=== PATIENT | male | born 1955 | race Caucasian/White ===

== ENCOUNTER 2016-08-28 19:11 | Emergency (ER) | payer OTHER, MEDICARE ==
[2016-08-28] MEDS ORDERED: ASPIRIN 81 MG TABLET, CHEWABLE PO ONE (19:28)
--- NOTE | 2016-08-28 19:30 | ER Document Report ---
ED Medical Screen (RME) - General Chief Complaint: Edema Stated Complaint: POSSIBLE SWELLING Time seen by provider: 19:25 Mode of Arrival: Wheelchair Information source: Patient Notes: 60-year-old male with a history of COPD woke up this morning with neck and facial swelling. It got worse after he took his 3:00 steroid dose. Oxygen 3 L/ m nasal cannula at home. Intermittent dizziness that started yesterday. Also right-sided chest pain that has been intermittent today lasting 45 minutes each episode. No history of CHF. Pulse ox is 91% is good for him when he wakes up in the morning it can be as low as 80. TRAVEL OUTSIDE OF THE [place] IN LAST 30 DAYS: No - Related Data Allergies/Adverse Reactions: diltiazem Adverse Reaction (Intermediate, Verified 08/28/16 19:24) cough Past Medical History - Past Medical History Cardiac Medical History: Reports: Hx Congestive Heart Failure - Diastolic Pulmonary Medical History: Reports: Hx Asthma, Hx Bronchitis, Hx COPD, Hx Pneumonia Renal/ Medical History: Reports: Hx Benign Prostatic Hyperplasia - Has been on tamsulosin BID, but recently decreased dose b/c BP low Psychiatric Medical History: Reports: Hx Depression - No suicidal or homicidal ideation. Traumatic Medical History: Reports: Hx Fractures - vetebra Past Surgical History: Reports: Hx Adenoidectomy, Hx Appendectomy, Hx Orthopedic Surgery - back x3, Hx Rectal Surgery - hemorriodectomy, Hx Tonsillectomy - Immunizations Hx Diphtheria, Pertussis, Tetanus Vaccination: Yes Physical Exam - Vital signs Vitals: Temp Pulse Resp BP Pulse Ox 98.1 F 116 H 16 139/80 H 91 L 08/28/16 19:20 08/28/16 19:20 08/28/16 19:20 08/28/16 19:20 08/28/16 19:20 Course - Vital Signs Vital signs: Temp Pulse Resp BP Pulse Ox 98.1 F 116 H 16 139/80 H 91 L 08/28/16 19:20 08/28/16 19:20 08/28/16 19:20 08/28/16 19:20 08/28/16 19:20
[2016-08-28 21:31] LABS: HEMOGLOBIN 10.7 g/dL (13.5-17.0); HGB HCT DIFFERENCE 0.1; MEAN CORPUSCULAR HEMOGLOBIN 27.9 pg (27.0-33.4); MEAN CORPUSCULAR HGB CONC 33.5 g/dL (32.0-36.0); MEAN CORPUSCULAR VOLUME 84 fl (80-97); RED BLOOD COUNT 3.84 10^6/uL (4.35-5.55); RED CELL DISTRIBUTION WIDTH 21.7 % (11.5-14.0); WHITE BLOOD COUNT 10.5 10^3/uL (4.0-10.5)
[2016-08-28 21:42] LABS: ALANINE AMINOTRANSFERASE 35 U/L (21-72); ALBUMIN 3.7 g/dL (3.5-5.0); ALKALINE PHOSPHATASE 55 U/L (38-126); ANION GAP 10 (5-19); ASPARTATE AMINO TRANSFERASE 36 U/L (17-59); BLOOD UREA NITROGEN 17 mg/dL (7-20); CALCIUM 8.7 mg/dL (8.4-10.2); CARBON DIOXIDE 30 mmol/L (22-30); CHLORIDE 96 mmol/L (98-107); CREATINE KINASE 35 U/L (55-170); GLUCOSE 108 mg/dL (75-110); POTASSIUM 4.1 mmol/L (3.6-5.0); SODIUM 135.9 mmol/L (137-145); TOTAL PROTEIN 6.3 g/dL (6.3-8.2)
--- NOTE | 2016-08-28 21:48 | EKG REPORT ---
SEVERITY:- BORDERLINE ECG - SINUS TACHYCARDIA : Confirmed by: Kp Alexis MD 28-Aug-2016 21:47:30
[2016-08-28 21:57] LABS: CREATINE KINASE MB 2.36 ng/mL (<4.55); TROPONIN I < 0.012 ng/mL
[2016-08-28 22:00] LABS: BAND NEUTROPHILS % (MANUAL) 1 % (3-5); BASOPHILS % (MANUAL) 0 % (0-2); EOSINOPHILS % (MANUAL) 0 % (0-6); LYMPHOCYTES % (MANUAL) 14 % (13-45); TOTAL CELLS COUNTED 100
[2016-08-28 22:04] LABS: ANISOCYTOSIS 3+; OVALOCYTES 2+; POIKILOCYTOSIS 2+; POLYCHROMASIA 1+; SCHISTOCYTES SLIGHT; SMUDGE CELLS PRESENT; TOXIC GRANULATION 2+; TOXIC VACUOLATION PRESENT
--- NOTE | 2016-08-28 22:51 | ER Document Report ---
ED General - General Chief Complaint: Edema Stated Complaint: POSSIBLE SWELLING Mode of Arrival: Wheelchair Notes: Patient is a 60-year-old male with past medical history of COPD with chronic 3 L oxygen dependence, currently on steroids and has been chronically for the past 3 weeks who presents with intermittent facial swelling. States that he first noticed this morning after waking up. The swelling did resolve throughout the day but then again recurred after he took his prednisone. States approximately 30 minutes after the prednisone the swelling started. It then slowly dissipated over the course of 2 hours. He has no prior history of similar symptoms in the past and is tolerating prednisone without difficulty in the past. Denies any associated shortness of breath, nausea, vomiting, chest pain, or hives. He did not contact his primary care physician regarding today' s concerns. He is not noticing any improvement or worsening symptoms. He denies any symptoms at the time of my evaluation and is lying in the bed playing on his ipad. TRAVEL OUTSIDE OF THE [place] IN LAST 30 DAYS: No - Related Data Allergies/Adverse Reactions: diltiazem Adverse Reaction (Intermediate, Verified 08/28/16 19:24) cough Past Medical History - General Information source: Patient - Social History Smoking Status: Former Smoker Chew tobacco use (# tins/day): No Frequency of alcohol use: Rare Drug Abuse: None Lives with: Spouse/Significant other Family History: CAD Patient has suicidal ideation: No Patient has homicidal ideation: No - Past Medical History Cardiac Medical History: Reports: Hx Congestive Heart Failure - Diastolic Pulmonary Medical History: Reports: Hx Asthma, Hx Bronchitis, Hx COPD, Hx Pneumonia Renal/ Medical History: Reports: Hx Benign Prostatic Hyperplasia - Has been on tamsulosin BID, but recently decreased dose b/c BP low. Denies: Hx Peritoneal Dialysis Psychiatric Medical History: Reports: Hx Depression - No suicidal or homicidal ideation. Traumatic Medical History: Reports: Hx Fractures - vetebra Past Surgical History: Reports: Hx Adenoidectomy, Hx Appendectomy, Hx Orthopedic Surgery - back x3, Hx Rectal Surgery - hemorriodectomy, Hx Tonsillectomy - Immunizations Hx Diphtheria, Pertussis, Tetanus Vaccination: Yes Hx Pneumococcal Vaccination: 05/08/10 Review of Systems - Review of Systems Notes: Constitutional: Negative for fever. HENT: Negative for sore throat. Eyes: Negative for visual changes. Cardiovascular: Negative for chest pain. Respiratory: Negative for shortness of breath. Gastrointestinal: Negative for abdominal pain, vomiting or diarrhea. Genitourinary: Negative for dysuria. Musculoskeletal: Negative for back pain. Skin: Positive for intermittent facial swelling Neurological: Negative for headaches, weakness or numbness. 10 point ROS negative except as marked above and in HPI. Physical Exam - Vital signs Vitals: Temp Pulse Resp BP Pulse Ox 98.1 F 116 H 16 139/80 H 91 L 08/28/16 19:20 08/28/16 19:20 08/28/16 19:20 08/28/16 19:20 08/28/16 19:20 Interpretation: Tachycardic, Hypoxic Notes: PHYSICAL EXAMINATION: GENERAL: Chronically ill in appearance but in no acute distress. HEAD: Atraumatic, normocephalic. EYES: Pupils equal round and reactive to light, extraocular movements intact, sclera anicteric, conjunctiva are normal. ENT: nares patent, oropharynx clear without exudates. Moist mucous membranes. NECK: Normal range of motion, supple without lymphadenopathy LUNGS: Breath sounds clear to auscultation bilaterally and equal. No wheezes rales or rhonchi. HEART: Regular rate and rhythm without murmurs ABDOMEN: Soft, nontender, normoactive bowel sounds. No guarding, no rebound. No masses appreciated. EXTREMITIES: Normal range of motion, no pitting or edema. No cyanosis. NEUROLOGICAL: No focal neurological deficits. Moves all extremities spontaneously and on command. PSYCH: Normal mood, normal affect. SKIN: Warm, Dry, normal turgor, no rashes or lesions noted. Course - Re-evaluation Re-evalutation: 08/28/16 22:51 Patient is a 60-year-old male who presents with concerns of facial swelling after taking prednisone. Of note, the nurse practitioner in triage apparently noted that the patient had complained of chest pain. However, both the patient and his deny this complaint. The swelling occurred over the last 12 hours with both doses of prednisone. Swelling has spontaneously resolved. At the time my evaluation patient is in no distress, vitals within normal limits. He has no facial swelling. No oropharyngeal swelling. No wheezing or stridor. His history is not consistent with an acute allergic reaction given that he only has some mild facial swelling but no hives, wheezing, vomiting, or cardiovascular symptoms. Moreover, he has been taking prednisone for years without a reaction the past. The exact etiology of patient's reported symptoms is unclear although based on his reassuring evaluation at this time both on history, labs and vitals, do not see an indication to obtain further testing or hospitalization. His history is not consistent with an SVC syndrome.At this time will discharge with return precautions and follow-up recommendations. Verbal discharge instructions given a the bedside and opportunity for questions given. Medication warnings reviewed. Patient is in agreement with this plan and has verbalized understanding of return precautions and the need for primary care follow-up in the next 24-72 hours. - Vital Signs Vital signs: Temp Pulse Resp BP Pulse Ox 97.4 F 116 H 13 133/95 H 100 08/28/16 23:01 08/28/16 19:25 08/28/16 23:01 08/28/16 23:01 08/28/16 23:01 - Laboratory Result Diagrams: 08/28/16 21:15 08/28/16 21:15 Laboratory results interpreted by me: 08/28/16 08/28/16 21:15 21:15 RBC 3.84 L Hgb 10.7 L Hct 32.0 L RDW 21.7 H Band Neutrophils % 1 L Monocytes % (Manual) 2 L Metamyelocytes % 2 H Myelocytes % 2 H Abs Neuts (Manual) 8.7 H Sodium 135.9 L Chloride 96 L Creatine Kinase 35 L - Diagnostic Test Radiology reviewed: Image reviewed, Reports reviewed Radiology results interpreted by me: 08/29/16 03:56 Chest x-ray: No acute infiltrate - EKG Interpretation by Me Additional EKG results interpreted by me: 08/29/16 03:57 Sinus tachycardia. Rate 107. No ST elevations or depressions. QTC 411. Discharge - Discharge Clinical Impression: Facial swelling Condition: Good Disposition: HOME, SELF-CARE Additional Instructions: Please return immediately if you began develop shortness of breath, swallowing, throat swelling, or any other symptoms that are concerning to you. Follow-up with your primary doctor as soon as possible Referrals: CARRI RIVERA MD [Primary Care Provider] - Follow up in 3-5 days
[2016-08-28 23:32] VITALS: BP 133/95
== END 2016-08-28 23:31 | disposition home or self-care (01) ==
LOC: ER 19:11
DX: J44.9 Chronic obstructive pulmonary disease, unspecified (principal); J45.909 Unspecified asthma, uncomplicated; I50.9 Heart failure, unspecified; Z99.81 Dependence on supplemental oxygen; Z87.891 Personal history of nicotine dependence
CPT/HCPCS: 36415; 71010; 80053; 82550; 82553; 84484; 85025; 93005; 93010; 99284

== ENCOUNTER 2016-09-16 14:44 | Emergency (ER) | payer OTHER, MEDICARE ==
[2016-09-16] MEDS ORDERED: PREDNISONE 20 MG TABLET PO ONE (14:55)
[2016-09-16] MEDS ORDERED: IPRATROPIUM/ALBUTEROL 0.5-2.5 MG/3 ML AMPUL NEB ONE ×2 (14:55→16:17)
--- NOTE | 2016-09-16 14:55 | ER Document Report ---
ED Medical Screen (RME) - General Stated Complaint: DIFFICULTY BREATHING Notes: palpitations for the past couple of days with difficulty breathing. COPD on 3L continuous chronic back pain and nonambulatory therefore in motorized wheel chair. h/o tachycardia. I have greeted and performed a rapid initial assessment of this patient. A comprehensive ED assessment and evaluation of the patient, analysis of test results and completion of the medical decision making process will be conducted by additional ED providers. TRAVEL OUTSIDE OF THE [place] IN LAST 30 DAYS: No - Related Data Allergies/Adverse Reactions: diltiazem Adverse Reaction (Intermediate, Verified 08/28/16 19:24) cough Past Medical History - Past Medical History Cardiac Medical History: Reports: Hx Congestive Heart Failure - Diastolic Pulmonary Medical History: Reports: Hx Asthma, Hx Bronchitis, Hx COPD, Hx Pneumonia Renal/ Medical History: Reports: Hx Benign Prostatic Hyperplasia - Has been on tamsulosin BID, but recently decreased dose b/c BP low. Denies: Hx Peritoneal Dialysis Psychiatric Medical History: Reports: Hx Depression - No suicidal or homicidal ideation. Traumatic Medical History: Reports: Hx Fractures - vetebra Past Surgical History: Reports: Hx Adenoidectomy, Hx Appendectomy, Hx Orthopedic Surgery - back x3, Hx Rectal Surgery - hemorriodectomy, Hx Tonsillectomy - Immunizations Hx Diphtheria, Pertussis, Tetanus Vaccination: Yes Physical Exam - Vital signs Vitals: Temp Pulse Resp BP Pulse Ox 98.3 F 116 H 12 132/102 H 92 09/16/16 14:48 09/16/16 14:48 09/16/16 14:48 09/16/16 14:48 09/16/16 14:48 Course - Vital Signs Vital signs: Temp Pulse Resp BP Pulse Ox 98.3 F 116 H 12 132/102 H 92 09/16/16 14:48 09/16/16 14:48 09/16/16 14:48 09/16/16 14:48 09/16/16 14:48
[2016-09-16] MEDS: ALBUTEROL SULFATE 0.083% NEB 2.5 MG/3 ML AMPUL NEB SCH (15:15)
[2016-09-16 15:16] LABS: HEMATOCRIT 31.7 % (37.9-51.0); HEMOGLOBIN 10.6 g/dL (13.5-17.0); HGB HCT DIFFERENCE 0.1; MEAN CORPUSCULAR HGB CONC 33.5 g/dL (32.0-36.0); MEAN CORPUSCULAR VOLUME 84 fl (80-97); RED BLOOD COUNT 3.79 10^6/uL (4.35-5.55); RED CELL DISTRIBUTION WIDTH 21.2 % (11.5-14.0); WHITE BLOOD COUNT 14.5 10^3/uL (4.0-10.5)
[2016-09-16 15:34] LABS: ALANINE AMINOTRANSFERASE 56 U/L (21-72); ALKALINE PHOSPHATASE 68 U/L (38-126); ANION GAP 11 (5-19); ASPARTATE AMINO TRANSFERASE 17 U/L (17-59); BILIRUBIN,TOTAL 0.9 mg/dL (0.2-1.3); BLOOD UREA NITROGEN 15 mg/dL (7-20); CALCIUM 9.2 mg/dL (8.4-10.2); CARBON DIOXIDE 29 mmol/L (22-30); CHLORIDE 93 mmol/L (98-107); CREATININE RESULT 0.78 mg/dL (0.52-1.25); GLUCOSE 109 mg/dL (75-110); POTASSIUM 4.2 mmol/L (3.6-5.0); SODIUM 132.9 mmol/L (137-145); TOTAL PROTEIN 6.4 g/dL (6.3-8.2)
[2016-09-16 15:38] LABS: BASOPHILS % (MANUAL) 0 % (0-2); EOSINOPHILS % (MANUAL) 1 % (0-6); LYMPHOCYTES % (MANUAL) 5 % (13-45); TOTAL CELLS COUNTED 100
[2016-09-16 15:39] LABS: ANISOCYTOSIS 2+; OVALOCYTES SLIGHT; TEAR DROP CELLS SLIGHT; TOXIC GRANULATION SLIGHT
--- NOTE | 2016-09-16 15:52 | ER Document Report ---
ED Respiratory Problem - General Time seen by provider: 15:40 Mode of Arrival: Ambulatory Information source: Patient TRAVEL OUTSIDE OF THE [place] IN LAST 30 DAYS: No - HPI Patient complains to provider of: Chest pain, CHF, COPD, Cough, Short of breath Onset: Other - see HPI note Context: Hx CHF, Hx COPD Associated symptoms: Chest pain/discomfort, Cough <STEVE NOONAN - Last Filed: 09/16/16 20:24> <LEOLA ALONZO - Last Filed: 09/16/16 22:38> - General Chief Complaint: Breathing Difficulty Stated Complaint: DIFFICULTY BREATHING Notes: Patient is a 60-year-old male presenting to the emergency department with complaints of difficulty breathing. Patient states that he took 2 nebulizer treatments at home and was given 60 mg of prednisone. Patient is on 3 L of oxygen at home. Patient has some chest pain which is not new. Patient states that he feels worse and more tired and previous episodes of this. Patient states that he used his Trilogy nebulizer machine yesterday evening and he had a dehumidifier on last night. Patient states that this morning his difficulty breathing was extremely worse. Patient denies any fever. Patient is seen in the emergency department for difficulty breathing in the recent past. (STEVE NOONAN) - Related Data Allergies/Adverse Reactions: diltiazem Adverse Reaction (Intermediate, Verified 08/28/16 19:24) cough Past Medical History - General Information source: Patient - Social History Smoking Status: Former Smoker Chew tobacco use (# tins/day): No Frequency of alcohol use: None Drug Abuse: None Family History: CAD Patient has suicidal ideation: No Patient has homicidal ideation: No - Past Medical History Cardiac Medical History: Reports: Hx Congestive Heart Failure - Diastolic Pulmonary Medical History: Reports: Hx Asthma, Hx Bronchitis, Hx COPD, Hx Pneumonia Renal/ Medical History: Reports: Hx Benign Prostatic Hyperplasia - Has been on tamsulosin BID, but recently decreased dose b/c BP low Psychiatric Medical History: Reports: Hx Depression - No suicidal or homicidal ideation. Traumatic Medical History: Reports: Hx Fractures - vetebra Past Surgical History: Reports: Hx Adenoidectomy, Hx Appendectomy, Hx Orthopedic Surgery - back x3, Hx Rectal Surgery - hemorriodectomy, Hx Tonsillectomy - Immunizations Hx Diphtheria, Pertussis, Tetanus Vaccination: Yes Hx Pneumococcal Vaccination: 05/08/10 <SHAISTASTEVE - Last Filed: 09/16/16 20:24> Review of Systems - Review of Systems Constitutional: No symptoms reported EENT: No symptoms reported Cardiovascular: See HPI, Chest pain Respiratory: See HPI, Cough, Short of breath Gastrointestinal: No symptoms reported Genitourinary: No symptoms reported Male Genitourinary: No symptoms reported Musculoskeletal: No symptoms reported Skin: No symptoms reported Hematologic/Lymphatic: No symptoms reported Neurological/Psychological: No symptoms reported -: Yes All other systems reviewed and negative <JENAGREGORIOSTEVE - Last Filed: 09/16/16 20:24> Physical Exam - Vital signs Interpretation: Tachycardic - General General appearance: Alert, Anxious - HEENT Head: Normocephalic, Atraumatic Eyes: Normal Pupils: PERRL Mucous membranes: Moist - Respiratory Respiratory status: No respiratory distress Chest status: Nontender Breath sounds: Wheezing - Slight expiratory wheeze bilaterally Chest palpation: Normal - Cardiovascular Rhythm: Regular Heart sounds: Normal auscultation Murmur: No - Abdominal Inspection: Normal Distension: No distension Bowel sounds: Normal Tenderness: Nontender Organomegaly: No organomegaly - Back Back: Normal, Nontender - Extremities General upper extremity: Normal inspection, Normal ROM, Normal strength General lower extremity: Normal inspection, Normal ROM, Normal strength - Neurological Neuro grossly intact: Yes Cognition: Normal Orientation: AAOx4 Dixon Coma Scale Eye Opening: Spontaneous Eli Coma Scale Verbal: Oriented Eli Coma Scale Motor: Obeys Commands Dixon Coma Scale Total: 15 Speech: Normal - Psychological Associated symptoms: Normal affect, Anxious - Skin Skin Temperature: Warm Skin Moisture: Dry <STEVE NOONAN - Last Filed: 09/16/16 20:24> Course - Laboratory Result Diagrams: 09/16/16 15:00 09/16/16 15:00 <STEVE NOONAN - Last Filed: 09/16/16 20:24> - Laboratory Result Diagrams: 09/16/16 15:00 09/16/16 15:00 - Diagnostic Test Radiology reviewed: Image reviewed, Reports reviewed <LEOLA ALONZO - Last Filed: 09/16/16 22:38> - Re-evaluation Re-evalutation: 09/16/16 Patient is a 60-year-old male the history of COPD. No evidence for pneumonia clinically today. Patient is afebrile. I reviewed his chest x-ray and it does not appear different from before. The patient actually appears better from the last time I saw him. He is not in any acute distress. Feels much better after anxiety medication and fluids. Heart rate within normal limits. Blood pressure within normal limits. Return immediately if any worsening or concerning symptoms. Stable for discharge home. Patient and with prefer that the patient go home today. Understand and agree with plan. Grateful for care. (LEOLA ALONZO) - Vital Signs Vital signs: Temp Pulse Resp BP Pulse Ox 98.3 F 105 H 15 134/93 H 94 09/16/16 14:48 09/16/16 15:15 09/16/16 18:31 09/16/16 18:31 09/16/16 18:31 (STEVE NOONAN) (LEOLA ALONZO) - Laboratory Laboratory results interpreted by me: 09/16/16 09/16/16 09/16/16 15:00 15:00 15:00 WBC 14.5 H RBC 3.79 L Hgb 10.6 L Hct 31.7 L RDW 21.2 H Seg Neuts % (Manual) 91 H Lymphocytes % (Manual) 5 L Abs Neuts (Manual) 13.2 H Sodium 132.9 L Chloride 93 L Creatine Kinase 27 L (STEVE NOONAN) (LEOLA ALONZO) Discharge <STEVE NOONAN - Last Filed: 09/16/16 20:24> <LEOLA ALONZO - Last Filed: 09/16/16 22:38> - Discharge Clinical Impression: Anxiety, COPD exacerbation Condition: Stable Disposition: HOME, SELF-CARE Instructions: Chronic Obstructive Lung Disease ([facility]), Anxiety ([facility]) Referrals: LINDSEY RIVERA MD [Primary Care Provider] - Follow up as needed Scribe Attestation: 09/16/16 22:38 I personally performed the services described in the documentation, reviewed and edited the documentation which was dictated to the scribe in my presence, and it accurately records my words and actions. (LEOLA ALONZO) Scribe Documentation - Scribe Written by Scribe:: Steve Noonan 09/16/16 19:10 acting as scribe for DrJenn:: Martha <STEVE NOONAN - Last Filed: 09/16/16 20:24>
[2016-09-16 16:48] LABS: CREATINE KINASE MB 1.88 ng/mL (<4.55)
[2016-09-16] MEDS ORDERED: LORAZEPAM 0.5 MG TABLET PO ONE (16:48)
[2016-09-16] MEDS ORDERED: NORMAL SALINE 1000 ML 1,000 ML IV ONE (16:48)
[2016-09-16 16:49] LABS: TROPONIN I < 0.012 ng/mL
--- NOTE | 2016-09-16 17:15 | EKG REPORT ---
SEVERITY:- OTHERWISE NORMAL ECG - SINUS TACHYCARDIA. : Confirmed by: Kp Alexis MD 16-Sep-2016 17:14:08
[2016-09-16 18:47] VITALS: BP 134/93
== END 2016-09-16 18:49 | disposition home or self-care (01) ==
LOC: ER 14:44
DX: J44.1 Chronic obstructive pulmonary disease with (acute) exacerbation (principal); F41.9 Anxiety disorder, unspecified; J45.909 Unspecified asthma, uncomplicated; I50.30 Unspecified diastolic (congestive) heart failure; Z87.891 Personal history of nicotine dependence; Z99.81 Dependence on supplemental oxygen
CPT/HCPCS: 93005; 94640 ×2; 99285; 36415; 82553; 82550; 85025; 80053; 84484; 71010; 93010; J7512; J7620

== ENCOUNTER 2016-09-19 12:01 | Emergency (ER) | payer OTHER, MEDICARE ==
[2016-09-19 13:07] LABS: HEMATOCRIT 30.3 % (37.9-51.0); HEMOGLOBIN 10.2 g/dL (13.5-17.0); HGB HCT DIFFERENCE 0.3; MEAN CORPUSCULAR HEMOGLOBIN 28.2 pg (27.0-33.4); MEAN CORPUSCULAR HGB CONC 33.7 g/dL (32.0-36.0); MEAN CORPUSCULAR VOLUME 84 fl (80-97); RED BLOOD COUNT 3.62 10^6/uL (4.35-5.55); RED CELL DISTRIBUTION WIDTH 20.9 % (11.5-14.0); WHITE BLOOD COUNT 13.7 10^3/uL (4.0-10.5)
[2016-09-19 13:24] LABS: ALANINE AMINOTRANSFERASE 52 U/L (21-72); ALBUMIN 3.8 g/dL (3.5-5.0); ALKALINE PHOSPHATASE 65 U/L (38-126); ANION GAP 10 (5-19); ASPARTATE AMINO TRANSFERASE 19 U/L (17-59); BILIRUBIN,TOTAL 0.8 mg/dL (0.2-1.3); BLOOD UREA NITROGEN 11 mg/dL (7-20); CALCIUM 9.1 mg/dL (8.4-10.2); CARBON DIOXIDE 28 mmol/L (22-30); CHLORIDE 94 mmol/L (98-107); CREATINE KINASE 33 U/L (55-170); CREATININE RESULT 0.75 mg/dL (0.52-1.25); GLUCOSE 92 mg/dL (75-110); POTASSIUM 4.1 mmol/L (3.6-5.0)
[2016-09-19 13:32] LABS: BAND NEUTROPHILS % (MANUAL) 7 % (3-5); BASOPHILS % (MANUAL) 0 % (0-2); EOSINOPHILS % (MANUAL) 0 % (0-6); LYMPHOCYTES % (MANUAL) 9 % (13-45); TOTAL CELLS COUNTED 100
[2016-09-19 13:33] LABS: HYPOCHROMASIA SLIGHT; OVALOCYTES 1+; POIKILOCYTOSIS 1+; POLYCHROMASIA SLIGHT; TOXIC GRANULATION SLIGHT
[2016-09-19 13:36] LABS: CREATINE KINASE MB 2.16 ng/mL (<4.55)
[2016-09-19 13:37] LABS: TROPONIN I < 0.012 ng/mL
[2016-09-19] MEDS ORDERED: IPRATROPIUM/ALBUTEROL 0.5-2.5 MG/3 ML AMPUL NEB ONE (14:27)
--- NOTE | 2016-09-19 14:55 | ER Document Report ---
ED Respiratory Problem - General Chief Complaint: Shortness Of Breath Stated Complaint: CHEST PAIN,SHORTNESS OF BREATH Mode of Arrival: Wheelchair Information source: Patient Notes: This is a 60-year-old male who is oxygen dependent for his COPD who returns to the ER today for continued shortness of breath and chest discomfort. He has had multiple ER visits for this complaint. He was seen for same symptoms on September 16. He has been stable on his 3 L of home O2. He denies any fevers. He has been compliant with his steroids and his nebulizers. He states that today he coughed up some brownish sputum which worried him and prompted him to return to the ER. He does not currently have chest pain. TRAVEL OUTSIDE OF THE [place] IN LAST 30 DAYS: No - Related Data Allergies/Adverse Reactions: diltiazem Adverse Reaction (Intermediate, Verified 09/19/16 12:05) cough Past Medical History - General Information source: Patient - Social History Smoking Status: Former Smoker Family History: CAD - Past Medical History Cardiac Medical History: Reports: Hx Congestive Heart Failure - Diastolic Pulmonary Medical History: Reports: Hx Asthma, Hx Bronchitis, Hx COPD, Hx Pneumonia Renal/ Medical History: Reports: Hx Benign Prostatic Hyperplasia - Has been on tamsulosin BID, but recently decreased dose b/c BP low. Denies: Hx Peritoneal Dialysis Psychiatric Medical History: Reports: Hx Depression - No suicidal or homicidal ideation. Traumatic Medical History: Reports: Hx Fractures - vetebra Past Surgical History: Reports: Hx Adenoidectomy, Hx Appendectomy, Hx Orthopedic Surgery - back x3, Hx Rectal Surgery - hemorriodectomy, Hx Tonsillectomy - Immunizations Hx Diphtheria, Pertussis, Tetanus Vaccination: Yes Hx Pneumococcal Vaccination: 05/08/10 Review of Systems - Review of Systems Notes: REVIEW OF SYSTEMS: CONSTITUTIONAL : Denies fever, chills, or sweats. Denies recent illness. EENT: Denies eye, ear, throat, or mouth pain or symptoms. Denies nasal or sinus congestion. CARDIOVASCULAR: No palpitations. Constant chest discomfort as per HPI. RESPIRATORY: as per HPI GASTROINTESTINAL: Denies abdominal pain. Denies nausea, vomiting, or diarrhea. Denies constipation. Last BM: GENITOURINARY: Denies difficulty urinating, painful urination, burning, frequency, or blood in urine. MUSCULOSKELETAL: Denies neck or back pain or joint pain or swelling. SKIN: Denies rash or skin lesions. HEMATOLOGIC : Denies easy bruising or bleeding. LYMPHATIC: Denies swollen, enlarged glands. NEUROLOGICAL: Denies altered mental status or loss of consciousness. Denies headache. PSYCHIATRIC: Denies anxiety or stress or depression. ALL OTHER SYSTEMS REVIEWED AND NEGATIVE. Physical Exam - Vital signs Vitals: Temp Pulse Resp BP Pulse Ox 98.6 F 119 H 22 H 137/84 H 89 L 09/19/16 12:19 09/19/16 12:19 09/19/16 12:19 09/19/16 12:19 09/19/16 12:19 - Notes Notes: Patient noted to be resting comfortably in his bed and working on his laptop as I enter the room. PHYSICAL EXAMINATION: GENERAL: Well-appearing, well-nourished and in no acute distress. Conversant in full sentences. HEAD: Atraumatic, normocephalic. EYES: Pupils equal round and reactive to light, extraocular movements intact, sclera anicteric, conjunctiva are normal. ENT: nares patent, oropharynx clear without exudates. Moist mucous membranes. NECK: Normal range of motion, supple without lymphadenopathy LUNGS: Breath sounds clear to auscultation bilaterally and equal. Occasional faint scattered expiratory wheeze bilaterally. HEART: Tachycardic rate and regular rhythm without murmurs ABDOMEN: Soft, nontender, normoactive bowel sounds. No guarding, no rebound. No masses appreciated. EXTREMITIES: Normal range of motion, no pitting or edema. No cyanosis. NEUROLOGICAL: Cranial nerves grossly intact. Normal speech. No gross focal motor or sensory deficits PSYCH: Normal mood, somewhat anxious/nervous affect SKIN: Warm, Dry, normal turgor, no rashes or lesions noted. Course - Re-evaluation Re-evalutation: 09/19/16 16:16 Patient was reevaluated. He is sitting up in bed speaking in full sentences and states he he feels much better after the breathing treatment and Ativan. We discussed his chest x-ray and that there was no evidence of pneumonia at this time, however he is coughing up thick sputum which is new for him. Also although his total white blood cell count has decreased from last visit he does have a mild bandemia with 7% bands. Because of these changes we will treat with an antibiotic at this time, and he is already taking prednisone. Patient states that he would like to go home he is feeling better and he does not wish to stay in the hospital and I think that this is appropriate as he has outpatient follow-up already scheduled and he and his family are reliable to return for any worsening symptoms or concerns. We discussed strict return precautions and all questions were answered. 09/19/16 16:23 - Vital Signs Vital signs: Temp Pulse Resp BP Pulse Ox 98.6 F 119 H 18 129/117 H 95 09/19/16 12:19 09/19/16 12:19 09/19/16 13:01 09/19/16 13:01 09/19/16 13:01 - Laboratory Result Diagrams: 09/19/16 12:51 09/19/16 12:51 Laboratory results interpreted by me: 09/19/16 09/19/16 12:51 12:51 WBC 13.7 H RBC 3.62 L Hgb 10.2 L Hct 30.3 L RDW 20.9 H Band Neutrophils % 7 H Lymphocytes % (Manual) 9 L Abs Neuts (Manual) 11.4 H Sodium 132.0 L Chloride 94 L Creatine Kinase 33 L Total Protein 6.0 L - Diagnostic Test Radiology reviewed: Image reviewed, Reports reviewed - Chest x-ray shows COPD with no obvious infiltrate - EKG Interpretation by Me Additional EKG results interpreted by me: 09/19/16 15:04 EKG done at 1210 demonstrates sinus tachycardia with a rate of [address] segment elevations or depressions. There is no significant change from prior EKG Discharge - Discharge Clinical Impression: COPD (chronic obstructive pulmonary disease) with acute bronchitis, Anxiety Condition: Stable Disposition: HOME, SELF-CARE Additional Instructions: INHALED BRONCHODILATORS: You have received treatment(s) of and/or prescription for an inhaled bronchodilator -- a medication which stimulates the airways in the lung to dilate. This improves the flow of air in asthma, bronchitis, and emphysema. These medicines have some similarity to adrenaline, and can cause similar side effects: shakiness, racing heart, and a sense of nervousness. These side effects decrease with time. Contact your doctor if these side effects are severe. Do not over-use the medicine. Too-frequent use of the inhaler may make it ineffective. Call your doctor if the inhaler is not controlling your symptoms at the prescribed doses. SMOKING: If you smoke, you should stop smoking. The tar and chemicals in cigarette smoke are harmful. Smoking has been shown to cause: emphysema chronic bronchitis lung cancer mouth and throat cancer stomach and pancreas cancer premature aging defects In addition, smoking increases ear and lung infections in children of smokers. ANTIBIOTIC THERAPY: You have been given an antibiotic prescription. It's important that you take all the medication, unless instructed otherwise by your physician. Failure to complete the entire course can result in relapse of your condition. Common side effects of antibiotics include nausea, intestinal cramping, or diarrhea. Women may develop vaginal yeast infections, and babies can get yeast (thrush) in the mouth following the use of antibiotics. Contact your physician if you develop significant side effects from this medication. Allergy to this antibiotic can result in hives, wheezing, faintness, or itching. If symptoms of allergy occur, stop the medication and call your doctor. USE OF ACETAMINOPHEN: Acetaminophen may be taken for pain relief or fever control. It's much safer than aspirin, offering a wider range of "safe" dosages. It is safe during . Some brand names are Tylenol, Panadol, Datril, Anacin 3, Tempra, and Liquiprin. Acetaminophen can be repeated every four hours. The following are maximum recommended dosages: BRONCHITIS: You have acute bronchitis. This disease is an infection or inflammation of the air passageways in your lungs. Symptoms usually include cough, low grade fever, shortness of breath, and wheezing. The cough usually persists for a couple of weeks. Most cases of bronchitis get better without antibiotics. We prescribe antibiotics when we believe bacteria are damaging your airways, or if there's high risk the bronchitis will worsen into pneumonia. Increase your fluid intake. A cool mist humidifier may make your lungs more comfortable. An expectorant (cough medicine that loosens phlegm) can help. If you smoke, STOP!!! Recovery from bronchitis can be somewhat slow, but you should see improvement within a day or two. Repeated episodes of bronchitis may result in lung damage -- for example, chronic bronchitis, recurrent pneumonias, or emphysema. Call the doctor if you develop increasing fever, shortness of breath, chest pain, bloody sputum, or otherwise worsen. If you have not improved at all after several days, contact the physician. ANTIBIOTIC THERAPY: You have been given an antibiotic prescription. It's important that you take all the medication, unless instructed otherwise by your physician. Failure to complete the entire course can result in relapse of your condition. Common side effects of antibiotics include nausea, intestinal cramping, or diarrhea. Women may develop vaginal yeast infections, and babies can get yeast (thrush) in the mouth following the use of antibiotics. Contact your physician if you develop significant side effects from this medication. Allergy to this antibiotic can result in hives, wheezing, faintness, or itching. If symptoms of allergy occur, stop the medication and call your doctor. Chronic Obstructive Lung Disease You have chronic obstructive lung disease (COPD). The symptoms come from emphysema (damage to small airways, with trapping of air in large sacks in the lung) and chronic bronchitis (repeated infection and damage to larger airways). The cause is almost always cigarette smoking, although dust exposure, asthma, and infections contribute. You should avoid fumes, dust, and smoke (especially tobacco smoke). Your condition will flare from time to time. There is no cure, but the symptoms can be treated. Bronchodilators (asthma medicine) are often helpful. Antibiotics help when infection is present. When shortness of breath is severe, we may prescribe cortisone medication. If medicine doesn't help enough, we can arrange for you to have an oxygen tank at home. Notify your doctor at once if sputum becomes thick, foul, or bloody, if you develop a fever or chest pain, or if your shortness of breath worsens. USE OF ACETAMINOPHEN (Tylenol): Acetaminophen may be taken for pain relief or fever control. It's much safer than aspirin, offering a wider range of "safe" dosages. It is safe during . Some brand names are Tylenol, Panadol, Datril, Anacin 3, Tempra, and Liquiprin. Acetaminophen can be repeated every four hours. The following are maximum recommended dosages: >89 pounds or adults 650 mg to 900 mg Acetaminophen can be repeated every four hours. Maximum dose not to exceed 4000 mg a day. SMOKING: If you smoke, you should stop smoking. The tar and chemicals in cigarette smoke are harmful. Smoking has been shown to cause: emphysema chronic bronchitis lung cancer mouth and throat cancer stomach and pancreas cancer premature aging defects In addition, smoking increases ear and lung infections in children of smokers. FOLLOW-UP CARE: If you have been referred to a physician for follow-up care, call the physician s office for an appointment as you were instructed or within the next two days. If you experience worsening or a significant change in your symptoms, notify the physician immediately or return to the Emergency Department at any time for re-evaluation. Levofloxacain You have been given an antibacterial agent, levofloxacin (Levaquin). This medicine is not related to the penicillins, sulfas, cephalosporins, or tetracyclines. It is often given to patients who are allergic to these drugs. It has been chosen for you either because other drugs are not appropriate, or because of the nature of your problem. Levaquin should not be taken with antacids, as these can decrease its effectiveness. It can be taken without regard to meals. LEVAQUIN SHOULD NOT BE TAKEN BY CHILDREN, NURSING WOMEN, OR WOMEN. Although Levaquin is usually well-tolerated, common side effects can include nausea and diarrhea. Contact your doctor if you experience any unusual symptoms while on this medication, such as joint pain or swelling, shortness of breath, wheezing, faintness, or hives. Prescriptions: Levofloxacin [Levaquin 750 mg Tablet] 750 mg PO DAILY #10 tablet
[2016-09-19] MEDS ORDERED: LORAZEPAM INJ 2 MG/1 ML VIAL IV ONE (15:02)
[2016-09-19] MEDS ORDERED: NORMAL SALINE 1000 ML 1,000 ML IV ONE (15:02)
[2016-09-19 16:34] VITALS: BP 116/81
--- NOTE | 2016-09-19 17:41 | EKG REPORT ---
SEVERITY:- OTHERWISE NORMAL ECG - SINUS TACHYCARDIA : Confirmed by: Kp Alexis MD 19-Sep-2016 17:40:20
== END 2016-09-19 16:33 | disposition home or self-care (01) ==
LOC: ER 12:01
DX: J44.0 Chronic obstructive pulmonary disease with (acute) lower respiratory infection (principal); J20.9 Acute bronchitis, unspecified; F41.9 Anxiety disorder, unspecified; R06.02 Shortness of breath; R07.9 Chest pain, unspecified
CPT/HCPCS: 93005; 94640; 99285; 96361; 96374; 36415; 82553; 82550; 85025; 80053; 84484; 71010; 93010; J2060; J7030; J7620

== ENCOUNTER 2016-09-23 08:37 | Emergency (ER) | payer OTHER, MEDICARE ==
--- NOTE | 2016-09-23 10:28 | ER Document Report ---
ED GI/ - General Chief Complaint: Abdominal Pain Stated Complaint: ABDOMINAL PAIN Notes: The patient is a 60-year-old male, past medical history gastritis, hypertension , presents with epigastric pain and diarrhea for the past 2 days. He was prescribed Levaquin a few days ago for bronchitis. He says his heart rate is usually in the 110s. He denies fevers, nausea, vomiting, chest pain, shortness of breath, back pain or urinary symptoms. TRAVEL OUTSIDE OF THE [place] IN LAST 30 DAYS: No - Related Data Allergies/Adverse Reactions: diltiazem Adverse Reaction (Intermediate, Verified 09/23/16 08:56) cough Past Medical History - General Information source: Patient - Social History Smoking Status: Former Smoker Chew tobacco use (# tins/day): No Frequency of alcohol use: None Drug Abuse: None Family History: CAD Patient has suicidal ideation: No Patient has homicidal ideation: No - Past Medical History Cardiac Medical History: Reports: Hx Congestive Heart Failure - Diastolic Pulmonary Medical History: Reports: Hx Asthma, Hx Bronchitis, Hx COPD, Hx Pneumonia Renal/ Medical History: Reports: Hx Benign Prostatic Hyperplasia - Has been on tamsulosin BID, but recently decreased dose b/c BP low. Denies: Hx Peritoneal Dialysis Psychiatric Medical History: Reports: Hx Depression - No suicidal or homicidal ideation. Traumatic Medical History: Reports: Hx Fractures - vetebra Past Surgical History: Reports: Hx Adenoidectomy, Hx Appendectomy, Hx Orthopedic Surgery - back x3, Hx Rectal Surgery - hemorriodectomy, Hx Tonsillectomy - Immunizations Hx Diphtheria, Pertussis, Tetanus Vaccination: Yes Hx Pneumococcal Vaccination: 05/08/10 Review of Systems - Review of Systems Notes: REVIEW OF SYSTEMS: CONSTITUTIONAL: -fevers, -chills EENT: -eye pain, -difficulty swallowing, -nasal congestion CARDIOVASCULAR: -chest pain, -syncope. RESPIRATORY: -cough, -SOB GASTROINTESTINAL: +abdominal pain, -nausea, -vomiting, +diarrhea GENITOURINARY: -dysuria, -hematuria MUSCULOSKELETAL: -back pain, -neck pain SKIN: -rash or skin lesions. HEMATOLOGIC: -easy bruising or bleeding. LYMPHATIC: -swollen, enlarged glands. NEUROLOGICAL: -altered mental status or loss of consciousness, -headache, - neurologic symptoms PSYCHIATRIC: -anxiety, -depression. ALL OTHER SYSTEMS REVIEWED AND NEGATIVE. Physical Exam - Vital signs Vitals: Temp Pulse Resp BP Pulse Ox 97.8 F 114 H 20 123/81 93 09/23/16 08:48 09/23/16 08:48 09/23/16 08:48 09/23/16 08:48 09/23/16 08:48 - Notes Notes: PHYSICAL EXAMINATION: GENERAL: Well-appearing, well-nourished and in no acute distress. HEAD: Atraumatic, normocephalic. EYES: Pupils equal round and reactive to light, extraocular movements intact, sclera anicteric, conjunctiva are normal. ENT: nares patent, oropharynx clear without exudates. Moist mucous membranes. NECK: Normal range of motion, supple without lymphadenopathy LUNGS: Breath sounds clear to auscultation bilaterally and equal. No wheezes rales or rhonchi. HEART: Tachycardic, Regular rhythm without murmurs ABDOMEN: Soft, mildly tender epigastric area, normoactive bowel sounds. No guarding, no rebound. No masses appreciated. EXTREMITIES: Normal range of motion, no pitting or edema. No cyanosis. NEUROLOGICAL: Cranial nerves grossly intact. Normal speech, normal gait. Normal sensory, motor, and reflex exams. PSYCH: Normal mood, normal affect. SKIN: Warm, Dry, normal turgor, no rashes or lesions noted. Course - Re-evaluation Re-evalutation: Patient with mild epigastric tenderness and diarrhea. Labs are all unremarkable. Looking through old records, patient is consistently tachycardic in the 110s. Will treat with Pepcid and instructions to stay hydrated. Given return precautions and understands. - Vital Signs Vital signs: Temp Pulse Resp BP Pulse Ox 97.9 F 114 H 18 125/99 H 97 09/23/16 13:07 09/23/16 08:48 09/23/16 13:03 09/23/16 13:03 09/23/16 13:03 - Laboratory Result Diagrams: 09/23/16 11:20 09/23/16 11:20 Laboratory results interpreted by me: 09/23/16 09/23/16 11:20 11:20 RBC 3.99 L Hgb 11.0 L Hct 33.1 L RDW 21.2 H Seg Neuts % (Manual) 84 H Band Neutrophils % 1 L Lymphocytes % (Manual) 12 L Abs Neuts (Manual) 8.9 H Sodium 135.2 L Creatine Kinase 22 L Total Protein 6.1 L Discharge - Discharge Clinical Impression: Epigastric abdominal pain Diarrhea Qualifiers: Diarrhea type: unspecified type Qualified Code(s): R19.7 - Diarrhea, unspecified Condition: Good Disposition: HOME, SELF-CARE Additional Instructions: ABDOMINAL PAIN: There are many causes of abdominal pain. Pain can mean a serious problem requiring surgery (such as appendicitis). It can also be an innocent problem that goes away on its own (such as a viral infection). Often, time must pass to determine the cause of pain. The physician does not feel that hospitalization is necessary, at present. Things may change within the next 24 hours. Call the doctor or come back for re- examination if any problems occur, such as: (1) Pain that becomes more severe, steady, or becomes concentrated in one specific area. Also, pain that is more severe with movement or coughing. (2) Vomiting that persists or becomes more frequent. (3) Blood in the vomitus, urine, or bowel movements. Blood in the stool may have a tarry or black appearance. (4) Shaking chills or fever greater than 100 degrees F. (5) The abdomen becomes more distended or swollen. (6) Bowel movements cease. (7) Failure to improve as expected. NORMAL EXAM AND WORKUP: At this time, your examination and workup show no significant abnormality. No significant abnormal physical findings are noted. All laboratory, EKG, and imaging (x-ray, CT scans, ultrasound) studies that were ordered show no significant abnormality. Although your examination and all studies that were ordered showed no significant abnormal finding, there are no examinations and no studies that are 100% accurate. There is always the possibility that some abnormality could exist and not be detected with physical examination or within the limits and capabilities of laboratory and other studies. You should return or follow up as you were instructed on your visit today for further evaluation if your symptoms do not resolve. FOLLOW-UP CARE: If you have been referred to a physician for follow-up care, call the physician s office for an appointment as you were instructed or within the next two days. If you experience worsening or a significant change in your symptoms, notify the physician immediately or return to the Emergency Department at any time for re-evaluation. Diarrhea Diarrhea means frequent, watery stools. There are many causes. Any problem that keeps the intestinal tract from absorbing water from the stool can lead to diarrhea. A sudden new diarrhea problem is usually caused by a virus, food sensitivity, toxic bacteria, or drugs. In this case, we expect the problem to go away soon. Testing is done only if you seem seriously ill from the diarrhea. If you have chronic diarrhea, or diarrhea that keeps coming back, we need to find out why. Chronic diarrhea can be due to inflammation of the bowels such as Crohn's disease or ulcerative colitis, food sensitivity such as intolerance to lactose or wheat protein, irritable bowel syndrome, and other problems. If your diarrhea is a significant problem but it's not clear why you have it, we' ll refer you to a specialist for further testing. During an episode of diarrhea, drink small amounts (two to six ounces) of clear liquids (soft drinks, sport drinks, herb teas, broth, etc). Take fluids frequently to prevent dehydration. It's usually not a problem to take mild anti- diarrhea medication such as Kaopectate or Pepto-Bismol. As the diarrhea eases, advance to small amounts of bland food (mashed potato, toast) for 24 hours. Call the physician if blood appears in your vomit or stool, if vomiting lasts longer than 24 hours, if the abdominal pain worsens or becomes localized to one area, if you develop high fever, or if you become lightheaded and weak. Referrals: LINDSEY RIVERA MD [Primary Care Provider] - Follow up as needed
[2016-09-23] MEDS ORDERED: NORMAL SALINE 1000 ML 1,000 ML IV ONE (10:30)
[2016-09-23 11:34] LABS: HEMATOCRIT 33.1 % (37.9-51.0); HGB HCT DIFFERENCE -0.1; MEAN CORPUSCULAR HEMOGLOBIN 27.6 pg (27.0-33.4); MEAN CORPUSCULAR HGB CONC 33.3 g/dL (32.0-36.0); MEAN CORPUSCULAR VOLUME 83 fl (80-97); RED BLOOD COUNT 3.99 10^6/uL (4.35-5.55); RED CELL DISTRIBUTION WIDTH 21.2 % (11.5-14.0); WHITE BLOOD COUNT 10.5 10^3/uL (4.0-10.5)
[2016-09-23] MEDS ORDERED: MAG HYDROX/AL HYDROX/SIMETH SUSP 30 ML UDCUP PO ONE (11:39)
[2016-09-23] MEDS ORDERED: LIDOCAINE 2% VISCOUS SOLN 20 ML UDCUP PO ONE (11:39)
[2016-09-23] MEDS ORDERED: METOCLOPRAMIDE HCL ORAL SOLN 10 MG/10 ML UDCUP PO ONE (11:39)
[2016-09-23 11:51] LABS: ALANINE AMINOTRANSFERASE 54 U/L (21-72); ALBUMIN 3.9 g/dL (3.5-5.0); ALKALINE PHOSPHATASE 62 U/L (38-126); ANION GAP 8 (5-19); ASPARTATE AMINO TRANSFERASE 18 U/L (17-59); BILIRUBIN,TOTAL 1.1 mg/dL (0.2-1.3); BLOOD UREA NITROGEN 12 mg/dL (7-20); CALCIUM 9.3 mg/dL (8.4-10.2); CARBON DIOXIDE 27 mmol/L (22-30); CHLORIDE 100 mmol/L (98-107); CREATINE KINASE 22 U/L (55-170); CREATININE RESULT 0.77 mg/dL (0.52-1.25); GLUCOSE 102 mg/dL (75-110); LIPASE 40.6 U/L (23-300); POTASSIUM 3.9 mmol/L (3.6-5.0); SODIUM 135.2 mmol/L (137-145); TOTAL PROTEIN 6.1 g/dL (6.3-8.2)
[2016-09-23 11:54] LABS: BAND NEUTROPHILS % (MANUAL) 1 % (3-5); BASOPHILS % (MANUAL) 0 % (0-2); EOSINOPHILS % (MANUAL) 0 % (0-6); LYMPHOCYTES % (MANUAL) 12 % (13-45); TOTAL CELLS COUNTED 100
[2016-09-23 11:56] LABS: ANISOCYTOSIS 3+; OVALOCYTES 2+; POIKILOCYTOSIS 1+; POLYCHROMASIA SLIGHT; TOXIC GRANULATION SLIGHT
[2016-09-23 12:04] LABS: TROPONIN I < 0.012 ng/mL
--- NOTE | 2016-09-23 12:51 | EKG REPORT ---
SEVERITY:- OTHERWISE NORMAL ECG - SINUS TACHYCARDIA : Confirmed by: Casey Arzola 23-Sep-2016 12:51:22
[2016-09-23 13:08] VITALS: BP 125/99
== END 2016-09-23 13:08 | disposition home or self-care (01) ==
LOC: ER 08:37
DX: R10.13 Epigastric pain (principal); R19.7 Diarrhea, unspecified; J44.9 Chronic obstructive pulmonary disease, unspecified; I10 Essential (primary) hypertension; R00.0 Tachycardia, unspecified; J45.909 Unspecified asthma, uncomplicated; Z87.01 Personal history of pneumonia (recurrent); Z87.19 Personal history of other diseases of the digestive system; Z87.891 Personal history of nicotine dependence; Z90.49 Acquired absence of other specified parts of digestive tract
CPT/HCPCS: 93005; 99284; 96360; 36415; 82550; 83690; 85025; 80076; 80048; 84484; 83605; 83880; 71010; 93010; J3490; J7030

== ENCOUNTER 2016-09-24 01:57 | Emergency (ER) | payer OTHER, MEDICARE ==
[2016-09-24 02:04] VITALS: BP 143/83
[2016-09-24 05:02] LABS: ALANINE AMINOTRANSFERASE 51 U/L (21-72); ALBUMIN 3.4 g/dL (3.5-5.0); ALKALINE PHOSPHATASE 62 U/L (38-126); ANION GAP 9 (5-19); ASPARTATE AMINO TRANSFERASE 19 U/L (17-59); BILIRUBIN,TOTAL 0.7 mg/dL (0.2-1.3); BLOOD UREA NITROGEN 10 mg/dL (7-20); CALCIUM 8.9 mg/dL (8.4-10.2); CARBON DIOXIDE 30 mmol/L (22-30); CHLORIDE 97 mmol/L (98-107); CREATININE RESULT 0.83 mg/dL (0.52-1.25); GLUCOSE 87 mg/dL (75-110); LIPASE 50.9 U/L (23-300); POTASSIUM 3.3 mmol/L (3.6-5.0); SODIUM 135.9 mmol/L (137-145); TOTAL PROTEIN 5.9 g/dL (6.3-8.2)
[2016-09-24 05:14] LABS: ABSOLUTE BASOPHILS # (AUTO) 0.1 10^3/uL (0.0-0.2); ABSOLUTE EOSINOPHILS # (AUTO) 0.1 10^3/uL (0.0-0.6); ABSOLUTE LYMPHOCYTES (AUTO) 2.3 10^3/uL (0.5-4.7); ABSOLUTE MONOCYTES (AUTO) 0.6 10^3/uL (0.1-1.4); ABSOLUTE NEUT (AUTO) 7.4 10^3/uL (1.7-8.2); BASOPHILS % (AUTO) 0.6 % (0-2); EOSINOPHILS % (AUTO) 0.7 % (0-6); HEMOGLOBIN 11.1 g/dL (13.5-17.0); HGB HCT DIFFERENCE -0.7; LYMPHOCYTES % (AUTO) 21.7 % (13-45); MEAN CORPUSCULAR HEMOGLOBIN 27.5 pg (27.0-33.4); MEAN CORPUSCULAR HGB CONC 32.8 g/dL (32.0-36.0); MEAN CORPUSCULAR VOLUME 84 fl (80-97); MONOCYTES % (AUTO) 5.5 % (3-13); RED BLOOD COUNT 4.06 10^6/uL (4.35-5.55); RED CELL DISTRIBUTION WIDTH 21.7 % (11.5-14.0); SEGMENTED NEUTROPHILS % (AUTO) 71.5 % (42-78); WHITE BLOOD COUNT 10.4 10^3/uL (4.0-10.5)
--- NOTE | 2016-09-24 06:55 | ER Document Report ---
ED General - General Chief Complaint: Abdominal Pain Stated Complaint: ABDOMINAL PAIN TRAVEL OUTSIDE OF THE [place] IN LAST 30 DAYS: No - HPI Patient complains to provider of: epigastric abdominal pain Notes: Patient coming in stating he is having epigastric abdominal pain. Patient was evaluated for same pain day prior to arrival states that he did take one dose of his medication however there is pain that came back tonight further evaluation. Patient states pain is worse with eating. Patient denies any fevers chills nausea vomiting. Patient states he does have an appointment to see a miner assistant for an upper GI on October 12. Otherwise patient states currently is on antibiotics and steroids for possible pneumonia/bronchitis. Denies fevers chills nausea or peptic ulcer disease. - Related Data Allergies/Adverse Reactions: diltiazem Adverse Reaction (Intermediate, Verified 09/23/16 08:56) cough Past Medical History - Social History Smoking Status: Former Smoker Chew tobacco use (# tins/day): No Frequency of alcohol use: None Drug Abuse: None Family History: CAD Patient has suicidal ideation: No Patient has homicidal ideation: No - Past Medical History Cardiac Medical History: Reports: Hx Congestive Heart Failure - Diastolic Pulmonary Medical History: Reports: Hx Asthma, Hx Bronchitis, Hx COPD, Hx Pneumonia Renal/ Medical History: Reports: Hx Benign Prostatic Hyperplasia - Has been on tamsulosin BID, but recently decreased dose b/c BP low. Denies: Hx Peritoneal Dialysis Psychiatric Medical History: Reports: Hx Depression - No suicidal or homicidal ideation. Traumatic Medical History: Reports: Hx Fractures - vetebra Past Surgical History: Reports: Hx Adenoidectomy, Hx Appendectomy, Hx Orthopedic Surgery - back x3, Hx Rectal Surgery - hemorriodectomy, Hx Tonsillectomy - Immunizations Hx Diphtheria, Pertussis, Tetanus Vaccination: Yes Hx Pneumococcal Vaccination: 05/08/10 Review of Systems - Review of Systems Constitutional: No symptoms reported EENT: No symptoms reported Cardiovascular: No symptoms reported Respiratory: No symptoms reported Gastrointestinal: Abdominal pain Genitourinary: No symptoms reported Male Genitourinary: No symptoms reported Musculoskeletal: No symptoms reported Skin: No symptoms reported Hematologic/Lymphatic: No symptoms reported Neurological/Psychological: No symptoms reported -: Yes All other systems reviewed and negative Physical Exam - Vital signs Vitals: Temp Pulse Resp BP Pulse Ox 97.3 F 98 20 143/83 H 93 09/24/16 01:59 02/17/17 01:59 09/24/16 01:59 09/24/16 01:59 09/24/16 01:59 Interpretation: Normal - General General appearance: Appears well, Alert - HEENT Head: Normocephalic, Atraumatic Eyes: Normal Pupils: PERRL - Respiratory Respiratory status: No respiratory distress Chest status: Nontender Breath sounds: Normal Chest palpation: Normal - Cardiovascular Rhythm: Regular Heart sounds: Normal auscultation Murmur: No - Abdominal Inspection: Normal Distension: No distension Bowel sounds: Normal Tenderness: Tender - Minimal tenderness in the epigastric region. Patient is able to press in his epigastric region with deep palpation without any rebound and guarding. My examination patient has no rebound no guarding no signs of a surgical abdomen Organomegaly: No organomegaly - Back Back: Normal, Nontender - Extremities General upper extremity: Normal inspection, Nontender, Normal color, Normal ROM , Normal temperature General lower extremity: Normal inspection, Nontender, Normal color, Normal ROM , Normal temperature, Normal weight bearing. No: Ricardo's sign - Neurological Neuro grossly intact: Yes Cognition: Normal Orientation: AAOx4 Eli Coma Scale Eye Opening: Spontaneous Eli Coma Scale Verbal: Oriented Eli Coma Scale Motor: Obeys Commands Eli Coma Scale Total: 15 Speech: Normal Motor strength normal: LUE, RUE, LLE, RLE Sensory: Normal - Psychological Associated symptoms: Normal affect, Normal mood - Skin Skin Temperature: Warm Skin Moisture: Dry Skin Color: Normal Course - Re-evaluation Re-evalutation: 09/24/16 06:55 Initial evaluation patient stating that he was having pain upon eating ongoing for last 2 days epigastric region educated patient and family about possible gastritis and treatment thereof and that patient may be experiencing pain for some time. Course with include Carafate PPI and Reglan. Explained the patient' s lab work all looks normal and the only thing else I can offer would be a possible CT scan of the abdomen do not think with his story that this would add much diagnostic information After this explanation patient states that he's having constant pain and epigastric region. Question the patient stating that initially was saying that was hurting mostly when he ate patient states it does not. Patient states he never stated any pain with eating states that his pain is constant. Explained to patient that I would recommend change in treatment plan 09/24/16 14:59 After long discussion with patient he did change his initial history of present illness stating that the pain is constant does not get worse with eating. Offered patient CT scan EKG in for the lab work however patient declined this stating he would respond to go home with the recommended medications Carafate and omeprazole and Reglan. Patient was very irate stay they felt like punching someone. Patient discharged upon his request - Vital Signs Vital signs: Temp Pulse Resp BP Pulse Ox 97.3 F 91 20 143/83 H 95 09/24/16 01:59 09/24/16 02:00 09/24/16 01:59 09/24/16 01:59 09/24/16 02:00 - Laboratory Result Diagrams: 09/24/16 04:30 09/24/16 04:30 Laboratory results interpreted by me: 09/24/16 09/24/16 04:30 04:30 RBC 4.06 L Hgb 11.1 L Hct 34.0 L RDW 21.7 H Sodium 135.9 L Potassium 3.3 L Chloride 97 L Total Protein 5.9 L Albumin 3.4 L Discharge - Discharge Clinical Impression: Abdominal pain Qualifiers: Abdominal location: epigastric Qualified Code(s): R10.13 - Epigastric pain Condition: Good Disposition: HOME, SELF-CARE Instructions: Abdominal Pain ([facility]), Gastritis ([facility]), Clear Liquid Diet ([facility]) Additional Instructions: Please take medications as prescribed. I would highly recommend following up with GI specialist and your primary care physician. Please take to a clear liquid diet for the next 24-48 hours. Return to the ER symptoms worsen. Prescriptions: Metoclopramide HCl [Reglan] 5 mg PO Q6 #20 tablet Omeprazole 20 mg PO DAILY #14 capsule. Sucralfate [Carafate 1 gm Tablet] 1 gm PO ACHS #120 tablet Referrals: LINDSEY RIVERA MD [Primary Care Provider] - Follow up in 3-5 days
== END 2016-09-24 06:55 | disposition home or self-care (01) ==
LOC: ER 01:57
DX: R10.13 Epigastric pain (principal); J45.909 Unspecified asthma, uncomplicated; J44.9 Chronic obstructive pulmonary disease, unspecified; Z90.49 Acquired absence of other specified parts of digestive tract; Z87.891 Personal history of nicotine dependence
CPT/HCPCS: 36415; 80053; 83690; 85025; 99284

== ENCOUNTER 2016-10-07 23:53 | Emergency (ER) | payer OTHER, MEDICARE ==
[2016-10-07] MEDS ORDERED: ALBUTEROL SULFATE 0.083% NEB 2.5 MG/3 ML AMPUL NEB ONE (23:57)
--- NOTE | 2016-10-08 00:01 | ER Document Report ---
ED Medical Screen (RME) - General Chief Complaint: Breathing Difficulty Stated Complaint: DIFFICULTY BREATHING Mode of Arrival: Wheelchair Information source: Patient Notes: Patient presents to the emergency department with complaints of difficulty breathing. Patient has history of COPD is on home O2. Patient reports he was doing good until approximately 8:30 tonight when he started having coughing fits and difficulty breathing. Denies other symptoms such as fever vomiting diarrhea. Heart rate 135 02sat 80% I have greeted and performed a rapid initial assessment of this patient. A comprehensive ED assessment and evaluation of the patient, analysis of test results and completion of the medical decision making process will be conducted by additional ED providers. TRAVEL OUTSIDE OF THE [place] IN LAST 30 DAYS: No - Related Data Allergies/Adverse Reactions: diltiazem Adverse Reaction (Intermediate, Verified 09/23/16 08:56) cough Past Medical History - Social History Chew tobacco use (# tins/day): No Frequency of alcohol use: None Drug Abuse: None - Past Medical History Cardiac Medical History: Reports: Hx Congestive Heart Failure - Diastolic Pulmonary Medical History: Reports: Hx Asthma, Hx Bronchitis, Hx COPD, Hx Pneumonia Renal/ Medical History: Reports: Hx Benign Prostatic Hyperplasia - Has been on tamsulosin BID, but recently decreased dose b/c BP low. Denies: Hx Peritoneal Dialysis Psychiatric Medical History: Reports: Hx Depression - No suicidal or homicidal ideation. Traumatic Medical History: Reports: Hx Fractures - vetebra Past Surgical History: Reports: Hx Adenoidectomy, Hx Appendectomy, Hx Orthopedic Surgery - back x3, Hx Rectal Surgery - hemorriodectomy, Hx Tonsillectomy - Immunizations Hx Diphtheria, Pertussis, Tetanus Vaccination: Yes Physical Exam - Vital signs Vitals: Pulse BP Pulse Ox 132 H 138/104 H 81 L 10/07/16 23:57 10/07/16 23:57 10/07/16 23:57 Course - Vital Signs Vital signs: Temp Pulse Resp BP Pulse Ox 132 H 138/104 H 81 L 10/07/16 23:57 10/07/16 23:57 10/07/16 23:57
[2016-10-08] MEDS ORDERED: IPRATROPIUM/ALBUTEROL 0.5-2.5 MG/3 ML AMPUL NEB ONE (00:27)
[2016-10-08] MEDS ORDERED: METHYLPREDNISOLONE INJ 125 MG/2 ML SDV IV ONE (00:33)
[2016-10-08 00:36] LABS: VENOUS BLOOD BASE EXCESS 2.4 mmol/L; VENOUS BLOOD HCO3 27.1 mmol/L (20-32); VENOUS BLOOD PCO2 42.4 mmHg (35-63); VENOUS BLOOD PH 7.42 (7.30-7.42)
[2016-10-08 00:39] LABS: ABSOLUTE LYMPHOCYTES (AUTO) 1.1 10^3/uL (0.5-4.7); ABSOLUTE MONOCYTES (AUTO) 0.3 10^3/uL (0.1-1.4); ABSOLUTE NEUT (AUTO) 10.2 10^3/uL (1.7-8.2); BASOPHILS % (AUTO) 0.3 % (0-2); EOSINOPHILS % (AUTO) 0.3 % (0-6); HEMATOCRIT 32.3 % (37.9-51.0); HEMOGLOBIN 10.8 g/dL (13.5-17.0); HGB HCT DIFFERENCE 0.1; LYMPHOCYTES % (AUTO) 9.1 % (13-45); MEAN CORPUSCULAR HEMOGLOBIN 28.3 pg (27.0-33.4); MEAN CORPUSCULAR HGB CONC 33.5 g/dL (32.0-36.0); MEAN CORPUSCULAR VOLUME 84 fl (80-97); MONOCYTES % (AUTO) 2.9 % (3-13); RED BLOOD COUNT 3.82 10^6/uL (4.35-5.55); RED CELL DISTRIBUTION WIDTH 21.5 % (11.5-14.0); SEGMENTED NEUTROPHILS % (AUTO) 87.4 % (42-78); WHITE BLOOD COUNT 11.7 10^3/uL (4.0-10.5)
[2016-10-08] MEDS ORDERED: MAGNESIUM SULFATE/D5W 100 ML IV SCH (00:45)
[2016-10-08 00:57] LABS: ALANINE AMINOTRANSFERASE 42 U/L (21-72); ALKALINE PHOSPHATASE 61 U/L (38-126); ANION GAP 9 (5-19); ASPARTATE AMINO TRANSFERASE 26 U/L (17-59); BILIRUBIN,TOTAL 1.3 mg/dL (0.2-1.3); BLOOD UREA NITROGEN 11 mg/dL (7-20); CARBON DIOXIDE 29 mmol/L (22-30); CHLORIDE 93 mmol/L (98-107); CREATININE RESULT 1.02 mg/dL (0.52-1.25); GLUCOSE 123 mg/dL (75-110); POTASSIUM 3.7 mmol/L (3.6-5.0); SODIUM 131.4 mmol/L (137-145); TOTAL PROTEIN 6.5 g/dL (6.3-8.2)
--- NOTE | 2016-10-08 01:12 | ER Document Report ---
ED General - General Chief Complaint: Breathing Difficulty Stated Complaint: DIFFICULTY BREATHING Mode of Arrival: Wheelchair Notes: Patient is 60-year-old male presents with complaint of recurrent cough. Patient has history COPD. He started having a lot of difficulty breathing tonight around 8:30 PM. He has had a beans been in the past. He has been on BiPAP in the past. He quit smoking 6 years ago. He wears 2 L of oxygen at home at rest. He increases this to 4 L when walking around. No fevers. No other complaints at this time. TRAVEL OUTSIDE OF THE [place] IN LAST 30 DAYS: No - Related Data Allergies/Adverse Reactions: diltiazem Adverse Reaction (Intermediate, Verified 09/23/16 08:56) cough Past Medical History - General Information source: Patient - Social History Smoking Status: Former Smoker Chew tobacco use (# tins/day): No Frequency of alcohol use: None Drug Abuse: None Family History: CAD Patient has suicidal ideation: No Patient has homicidal ideation: No - Past Medical History Cardiac Medical History: Reports: Hx Congestive Heart Failure - Diastolic Pulmonary Medical History: Reports: Hx Asthma, Hx Bronchitis, Hx COPD, Hx Pneumonia Renal/ Medical History: Reports: Hx Benign Prostatic Hyperplasia - Has been on tamsulosin BID, but recently decreased dose b/c BP low. Denies: Hx Peritoneal Dialysis Psychiatric Medical History: Reports: Hx Depression - No suicidal or homicidal ideation. Traumatic Medical History: Reports: Hx Fractures - vetebra Past Surgical History: Reports: Hx Adenoidectomy, Hx Appendectomy, Hx Orthopedic Surgery - back x3, Hx Rectal Surgery - hemorriodectomy, Hx Tonsillectomy - Immunizations Hx Diphtheria, Pertussis, Tetanus Vaccination: Yes Hx Pneumococcal Vaccination: 05/08/10 Review of Systems - Review of Systems Notes: My Normal Review Basic REVIEW OF SYSTEMS: CONSTITUTIONAL : Denies fever, chills, or sweats. Denies recent illness. EENT: Denies eye, ear, throat, or mouth pain or symptoms. Denies nasal or sinus congestion. CARDIOVASCULAR: Denies chest pain. RESPIRATORY: Recurrent cough. Difficulty breathing. GASTROINTESTINAL: Denies abdominal pain. Denies nausea, vomiting, or diarrhea. Denies constipation. Last BM: GENITOURINARY: Denies difficulty urinating, painful urination, burning, frequency, or blood in urine. MUSCULOSKELETAL: Denies neck or back pain or joint pain or swelling. SKIN: Denies rash or skin lesions. NEUROLOGICAL: Denies altered mental status or loss of consciousness. Denies headache. Denies weakness or paralysis or loss of use of either side. Denies problems with gait or speech. Denies sensory or motor loss. ALL OTHER SYSTEMS REVIEWED AND NEGATIVE. Physical Exam - Vital signs Vitals: Pulse BP Pulse Ox 132 H 138/104 H 81 L 10/07/16 23:57 10/07/16 23:57 10/07/16 23:57 - Notes Notes: General Appearance: Well nourished, alert, cooperative, no acute distress, no obvious discomfort. Vitals: reviewed, See vital signs table. Head: no swelling or tenderness to the head Eyes: PERRL, EOMI, Conjuctiva clear Mouth: No decreasd moisture Throat: No tonsillar inflammation, No airway obstruction, No lymphadenopathy Neck: Supple, no neck tenderness, No thyromegaly Lungs: Diffuse wheezing, No rales, diffuse rhonci, No accessory muscle use, fair air exchange bilaterally. Heart: Tachycardic rate, Regular rythm, No murmur, no rub Abdomen: Normal BS, soft, No rigidity, No abdominal tenderness, No guarding, no rebound, no abdominal masses, no organomegaly Extremities: strength 5/5 in all extremities, good pulses in all extremities, no swelling or tenderness in the extremities, no edema. Skin: warm, dry, appropriate color, no rash Neuro: speech clear, oriented x 3, normal affect, responds appropriately to questions. Course - Vital Signs Vital signs: Temp Pulse Resp BP Pulse Ox 115 H 15 137/83 H 95 10/08/16 02:00 10/08/16 02:00 10/08/16 01:30 10/08/16 02:00 - Laboratory Result Diagrams: 10/08/16 00:20 10/08/16 00:20 Laboratory results interpreted by me: 10/08/16 10/08/16 00:20 00:20 WBC 11.7 H RBC 3.82 L Hgb 10.8 L Hct 32.3 L RDW 21.5 H Seg Neutrophils % 87.4 H Lymphocytes % 9.1 L Monocytes % 2.9 L Absolute Neutrophils 10.2 H Sodium 131.4 L Chloride 93 L Glucose 123 H - EKG Interpretation by Me Additional EKG results interpreted by me: 10/08/16 04:16 EKG is reviewed and interpreted by me. EKG shows sinus tachycardia with rate [address] segment elevation or depression. No ischemic T-wave inversions. AK interval, QRS duration, QTC intervals are within normal range. Old EKG for comparison is from 09/23/2016. - Transfer of Care Notes: 10/08/16 04:32 Patient is feeling much improved. His lung chan are clear. He wants to go home. He is on prednisone 30 mg a day at home. I did talk to him about increasing this but he is against increasing his prednisone again. We'll place him on doxycycline. I encouraged him to continue his breathing treatments at home. I strongly encouraged him to return to ER immediately if he has recurrence of difficulty breathing, fevers, or feels that he is worsening. Patient agrees with plan and he will be discharged home. Dictation of this chart was performed using voice recognition software; therefore, there may be some unintended grammatical errors. Discharge - Discharge Clinical Impression: COPD exacerbation Acute bronchitis Qualifiers: Bronchitis organism: unspecified organism Qualified Code(s): J20.9 - Acute bronchitis, unspecified Condition: Good Disposition: HOME, SELF-CARE Additional Instructions: BRONCHITIS WITH BRONCHOSPASM (WHEEZING): You have bronchitis with bronchospasm (wheezing). Sometimes people develop wheezing with a chest cold. This occurs either because of an underlying tendency toward asthma or because the virus itself irritates the bronchial tubes. This irritation causes cough, shortness of breath, and wheezing. Emergency treatment of bronchospasm may include adrenaline shots or bronchodilator aerosol. You may feel lightheaded and have a rapid pulse for an hour or two. Rest and get plenty of fluids. At home, we'll treat you with a bronchodilator inhaler. Corticosteroids may be required for some patients. Until you recover, avoid chemical fumes, dusts, pollens, and exercising in very cold or dry air. If you smoke, stop now! Most cases of bronchitis get better without antibiotics. We prescribe antibiotics when we believe bacteria are damaging your airways, or if there's high risk the bronchitis will worsen into pneumonia. Increase your fluid intake. A cool mist humidifier may make your lungs more comfortable. An expectorant (cough medicine that loosens phlegm) can help. Repeated episodes of bronchitis and bronchospasm may result in lung damage -- for example, chronic bronchitis, recurrent pneumonias, or emphysema. If you develop a fever, increased wheezing, chest pain, or severe shortness of breath, you should contact the doctor immediately. INHALED BRONCHODILATORS: You have received a treatment of and/or prescription for an inhaled bronchodilator -- a medication which stimulates the airways in the lung to dilate. This improves the flow of air in asthma, bronchitis, and emphysema. These medicines have some similarity to adrenaline, and can cause similar side effects: shakiness, racing heart, and a sense of nervousness. These side effects decrease with time. Contact your doctor if these side effects are severe. Do not over-use the medicine. Too-frequent use of the inhaler may make it ineffective. Call your doctor if the inhaler is not controlling your symptoms at the prescribed doses. ANTIBIOTIC THERAPY: You have been given an antibiotic prescription. It's important that you take all the medication, unless instructed otherwise by your physician. Failure to complete the entire course can result in relapse of your condition. Common side effects of antibiotics include nausea, intestinal cramping, or diarrhea. Women may develop vaginal yeast infections, and babies can get yeast (thrush) in the mouth following the use of antibiotics. Contact your physician if you develop significant side effects from this medication. Allergy to this antibiotic can result in hives, wheezing, faintness, or itching. If symptoms of allergy occur, stop the medication and call your doctor. DOXYCYCLINE: Doxycycline (Vibramycin, Doryx) is an antibiotic of the tetracycline family. This type of drug is useful for infections of the respiratory tract and genital tract, and is sometimes used for intestinal infections. Unlike most tetracyclines, doxycycline can be taken with food. It is longer acting, and (usually) less prone to side effects than regular tetracycline. Tetracycline antibiotics can stain immature teeth and SHOULD NOT BE TAKEN BY CHILDREN, NURSING MOTHERS, OR WOMEN. Tetracyclines can make you more prone to sunburn. Abdominal cramping, nausea, and diarrhea are occasional side effects. Women may experience vaginal yeast infections. Call the doctor at once if you develop hives, itching, shortness of breath , or lightheadedness. FOLLOW-UP CARE: If you have been referred to a physician for follow-up care, call the physician s office for an appointment as you were instructed or within the next two days. If you experience worsening or a significant change in your symptoms, notify the physician immediately or return to the Emergency Department at any time for re-evaluation. Please do your breathing treatments at home as scheduled. Please take your prednisone as scheduled. Please return to the ER immediately if you have recurrent difficulty breathing, reverse, or feel that your worsening in any way. Prescriptions: Doxycycline Hyclate 100 mg PO BID #14 capsule Referrals: LINDSEY RIVERA MD [Primary Care Provider] - 10/11/16
[2016-10-08] MEDS ORDERED: ALBUTEROL SULFATE 0.083% NEB 2.5 MG/3 ML AMPUL NEB ONE (02:56)
[2016-10-08] MEDS ORDERED: DOXYCYCLINE HYCLATE 100 MG TABLET PO ONE (04:30)
[2016-10-08 04:41] VITALS: BP 128/86
--- NOTE | 2016-10-08 09:19 | EKG REPORT ---
SEVERITY:- BORDERLINE ECG - SINUS TACHYCARDIA BORDERLINE T ABNORMALITIES, LATERAL LEADS : Confirmed by: Kp Alexis MD 08-Oct-2016 09:19:16
== END 2016-10-08 04:55 | disposition home or self-care (01) ==
LOC: ER 23:53
DX: J44.0 Chronic obstructive pulmonary disease with (acute) lower respiratory infection (principal); J20.9 Acute bronchitis, unspecified; J44.1 Chronic obstructive pulmonary disease with (acute) exacerbation; R00.0 Tachycardia, unspecified
CPT/HCPCS: 93005; 94640 ×2; 99285; 96374; 36415; 85025; 80053; 82803; 71020; 93010; J2930; J3475; J7620

== ENCOUNTER 2016-10-21 09:20 | Inpatient (IN) | payer MEDICARE, OTHER ==
[2016-10-21] MEDS ORDERED: IPRATROPIUM/ALBUTEROL 0.5-2.5 MG/3 ML AMPUL NEB ONE (09:41)
[2016-10-21] MEDS ORDERED: TERBUTALINE SULFATE INJ/PF 1 MG/1 ML SDV SUBCUT ONE (10:09)
[2016-10-21 10:12] LABS: VENOUS BLOOD BASE EXCESS 5.9 mmol/L; VENOUS BLOOD HCO3 31.9 mmol/L (20-32); VENOUS BLOOD PCO2 52.5 mmHg (35-63); VENOUS BLOOD PH 7.4 (7.30-7.42)
[2016-10-21] MEDS ORDERED: ALBUTEROL SULFATE 0.083% NEB 2.5 MG/3 ML AMPUL NEB ONE (10:20)
[2016-10-21] MEDS ORDERED: AZITHROMYCIN INJ 500 MG VIAL IV ONE (10:20)
[2016-10-21] MEDS ORDERED: MORPHINE SULFATE 10 MG/ML INJ IV ONE (10:20)
[2016-10-21 10:25] LABS: HEMATOCRIT 33.4 % (37.9-51.0); HEMOGLOBIN 10.9 g/dL (13.5-17.0); HGB HCT DIFFERENCE -0.7; MEAN CORPUSCULAR HGB CONC 32.7 g/dL (32.0-36.0); MEAN CORPUSCULAR VOLUME 83 fl (80-97); RED BLOOD COUNT 4.04 10^6/uL (4.35-5.55); RED CELL DISTRIBUTION WIDTH 22.1 % (11.5-14.0); WHITE BLOOD COUNT 19.1 10^3/uL (4.0-10.5)
[2016-10-21 10:33] LABS: ALANINE AMINOTRANSFERASE 51 U/L (21-72); ALBUMIN 3.7 g/dL (3.5-5.0); ALKALINE PHOSPHATASE 98 U/L (38-126); ANION GAP 13 (5-19); ASPARTATE AMINO TRANSFERASE 31 U/L (17-59); BILIRUBIN,TOTAL 2.1 mg/dL (0.2-1.3); BLOOD UREA NITROGEN 27 mg/dL (7-20); CALCIUM 9.6 mg/dL (8.4-10.2); CARBON DIOXIDE 33 mmol/L (22-30); CHLORIDE 92 mmol/L (98-107); CREATINE KINASE 87 U/L (55-170); GLUCOSE 106 mg/dL (75-110); POTASSIUM 4.1 mmol/L (3.6-5.0); SODIUM 137.5 mmol/L (137-145); TOTAL PROTEIN 6.8 g/dL (6.3-8.2)
--- NOTE | 2016-10-21 10:40 | ER Document Report ---
ED Respiratory Problem - General Chief Complaint: Breathing Difficulty Stated Complaint: DIFFICULTY BREATHING Notes: The patient is a 60-year-old male, past medical history COPD, chronic pain, presents with increased shortness of breath over the past 2 days. He was seen in the emergency room and discharged 2 days ago after a COPD exacerbation. He said he felt better, but this has worsened since this morning. He takes 30 mg steroids every day. The patient was placed on BiPAP by EMS and given a DuoNeb and 125 mg Solumedrol IV. The patient is still tachypneic, diaphoretic and tachycardic on arrival to the emergency room. He can nod his head but is not talking. His is providing the history. Denies new chest pain, leg swelling, hemoptysis, fevers, back pain, nausea, vomiting or abdominal pain. TRAVEL OUTSIDE OF THE [place] IN LAST 30 DAYS: No - Related Data Allergies/Adverse Reactions: diltiazem Adverse Reaction (Intermediate, Verified 10/19/16 19:00) cough Past Medical History - General Information source: Patient, Relative - , Emergency Med Personnel - Social History Smoking Status: Former Smoker Family History: CAD, DM - Sister, Other - Sister with connective tissue disorder - Past Medical History Cardiac Medical History: Reports: Hx Congestive Heart Failure - Diastolic Pulmonary Medical History: Reports: Hx Asthma, Hx Bronchitis, Hx COPD - Emphysema, Hx Pneumonia Neurological Medical History: Renal/ Medical History: Reports: Hx Benign Prostatic Hyperplasia - Has been on tamsulosin BID, but recently decreased dose b/c BP low. Denies: Hx Peritoneal Dialysis Psychiatric Medical History: Reports: Hx Depression - No suicidal or homicidal ideation. Traumatic Medical History: Reports: Hx Fractures Past Surgical History: Reports: Hx Adenoidectomy, Hx Appendectomy, Hx Orthopedic Surgery - back x3, Hx Rectal Surgery - hemorriodectomy, Hx Tonsillectomy, Other - Hemorrhoidectomy, eardrum surgery - Immunizations Hx Diphtheria, Pertussis, Tetanus Vaccination: Yes Hx Pneumococcal Vaccination: 05/08/10 Review of Systems - Review of Systems Notes: REVIEW OF SYSTEMS: CONSTITUTIONAL: -fevers, -chills EENT: -eye pain, -difficulty swallowing, -nasal congestion CARDIOVASCULAR:-chest pain, -syncope. RESPIRATORY: -cough, +SOB GASTROINTESTINAL: -abdominal pain, -nausea, -vomiting, -diarrhea GENITOURINARY: -dysuria, -hematuria MUSCULOSKELETAL: -back pain, -neck pain SKIN: -rash or skin lesions. HEMATOLOGIC: -easy bruising or bleeding. LYMPHATIC: -swollen, enlarged glands. NEUROLOGICAL: -altered mental status or loss of consciousness, -headache, - neurologic symptoms PSYCHIATRIC: -anxiety, -depression. ALL OTHER SYSTEMS REVIEWED AND NEGATIVE. Physical Exam - Vital signs Vitals: BP 170/101 H 10/21/16 07:02 - Notes Notes: PHYSICAL EXAMINATION: GENERAL: Moderate respiratory distress. On BiPap. HEAD: Atraumatic, normocephalic. EYES: Pupils equal round and reactive to light, extraocular movements intact, sclera anicteric, conjunctiva are normal. ENT: nares patent, oropharynx clear without exudates. Moist mucous membranes. NECK: Normal range of motion, supple without lymphadenopathy LUNGS: Bilateral diminished breath sounds. Tachypnea. Moderate respiratory distress. HEART: Tachycardia, regular rhythm ABDOMEN: Soft, nontender, normoactive bowel sounds. No guarding, no rebound. No masses appreciated. EXTREMITIES: Normal range of motion, no pitting or edema. No cyanosis. NEUROLOGICAL: No neurologic deficits. SKIN: Warm, Dry, normal turgor, no rashes or lesions noted. Course - Re-evaluation Re-evalutation: Patient arrives on BiPAP with severe respiratory distress. Maximal medication management for COPD exacerbation given, but patient continues to have respiratory distress and his mental status was worsening. No evidence of pneumonia on chest x-ray, but patient does have crackles and leukocytosis with tachycardia and tachypnea. Will treat for HCAP due to frequent hospitalizations. Spoke to his ballpoint pens assembler, Dr. Durbin, and has no further recommendations at this time for medical management. Spoke to that next step is intubation because of worsening respiratory distress and decreased mental status. As the POA, she gives consent for intubation, even after discussing possibility of prolonged intubation. Will admit patient to ICU under hospitalist service. Dr. Durbin will consult. 10/21/[address] Gandara and she has admitted patient. While in the room speaking about patient, patient's peak pressure on the ventilator significantly increased and he became hypoxic and increased tachycardic. No breath sounds on the right and trachea deviated. He was needle decompressed with a 14-gauge needle for suspected tension pneumothorax. Sullivan of air was released from needle. 32 [place] chest tube placed for pneumothorax and central line placed because of multiple drips and difficult venous access. - Vital Signs Vital signs: Temp Pulse Resp BP Pulse Ox 98.2 F 131 H 14 108/71 96 10/21/16 10:28 10/21/16 13:03 10/21/16 13:03 10/21/16 12:05 10/21/16 13:03 - Laboratory Result Diagrams: 10/21/16 09:45 10/21/16 09:45 Laboratory results interpreted by me: 10/21/16 10/21/16 10/21/16 09:45 09:45 11:50 WBC 19.1 H RBC 4.04 L Hgb 10.9 L Hct 33.4 L RDW 22.1 H Seg Neuts % (Manual) 88 H Band Neutrophils % 2 L Lymphocytes % (Manual) 5 L Metamyelocytes % 1 H Abs Neuts (Manual) 17.4 H Chloride 92 L Carbon Dioxide 33 H BUN 27 H Total Bilirubin 2.1 H Urine Urobilinogen 2.0 H - Diagnostic Test Radiology reviewed: Image reviewed, Reports reviewed Radiology results interpreted by me: CXR: NAD. Obstructive lung disease. - EKG Interpretation by Me EKG shows normal: Sinus rhythm, [place], Intervals, QRS Complexes, ST-T Waves Rate: Tachycardia Procedures - Central Line Right Internal jugular Time completed: 13:21 Consent obtained: Yes Central line pre-insertion: Sterile PPE donned, Betadine prep applied, Chloraprep applied, Sterile drapes applied Central line size (Fr.): 18 Central line lumen type: Triple Anesthetic type: 1% Lidocaine mL's of anesthesia: 5 Ultrasound guided: Yes CM at insertion site: 16 Line secured with sutures: Yes Central line post-insertion: Blood return from lumens, Biopatch applied, Sutured , Sterile dressing applied, Position confirmed w/ CXR Number of attempts: 1 Complications: No - Chest Tube Right Midaxillary Time completed: 13:21 Consent obtained: Yes Chest tube pre-insertion: Sterile PPE donned, Betadine prep applied, Chloraprep applied, Sterile drapes applied Size of [place] Tube (cm): 32 Anesthetic type: 1% Lidocaine mL's of anesthetic: 5 Chest tube post-insertion: Air sullivan heard, Sutured, Position confirmed w/ CXR, Water seal Chest tube drainage: Air Number of attempts: 1 Complications: No Discharge - Discharge Clinical Impression: Respiratory failure Qualifiers: Chronicity: acute on chronic Respiratory failure complication: hypoxia Qualified Code(s): J96.21 - Acute and chronic respiratory failure with hypoxia Condition: Critical Disposition: ADMITTED INPATIENT [facility] Unit Admitted: ICU
[2016-10-21 10:45] LABS: TROPONIN I 0.014 ng/mL
[2016-10-21] MEDS: MAGNESIUM SULFATE/D5W 100 ML IV SCH ×2 (10:47→11:21)
[2016-10-21 11:06] LABS: ANISOCYTOSIS 3+; BAND NEUTROPHILS % (MANUAL) 2 % (3-5); BASOPHILS % (MANUAL) 0 % (0-2); EOSINOPHILS % (MANUAL) 0 % (0-6); LYMPHOCYTES % (MANUAL) 5 % (13-45); NUCLEATED RED BLOOD CELLS 1 /100 WBC (0); OVALOCYTES 2+; POIKILOCYTOSIS 2+; POLYCHROMASIA 1+; TOTAL CELLS COUNTED 100; TOXIC GRANULATION SLIGHT
[2016-10-21] MEDS ORDERED: KETAMINE HCL INJ 500 MG/10 ML VIAL IV ONE (11:17)
[2016-10-21] MEDS ORDERED: SUCCINYLCHOLINE CHLORIDE INJ 200 MG/10 ML VIAL IV ONE (11:17)
--- NOTE | 2016-10-21 11:20 | EKG REPORT ---
SEVERITY:- OTHERWISE NORMAL ECG - SINUS TACHYCARDIA : Confirmed by: Casey Arzola 21-Oct-2016 11:18:52
[2016-10-21] MEDS ORDERED: ETOMIDATE INJ/PF 20 MG/10 ML SDV IV ONE (11:24)
[2016-10-21] MEDS ORDERED: PROPOFOL INJ 200 MG/20 ML VIAL IV ONE (11:32)
[2016-10-21] MEDS ORDERED: FENTANYL CITRATE INJ/PF 100 MCG/2 ML AMPUL IV ONE ×2 (11:33→13:14)
[2016-10-21] MEDS ORDERED: VANCOMYCIN HCL INJ 1000 MG VIAL IV ONE (11:42)
[2016-10-21] MEDS ORDERED: PIPERACILLIN/TAZOBACTAM 3.375 GM VIAL IV ONE (11:42)
[2016-10-21] MEDS ORDERED: PROPOFOL 100 ML IV PRN (11:47)
[2016-10-21] MEDS ORDERED: PROPOFOL 100 ML IV ONE (11:48)
[2016-10-21 12:09] LABS: APPEARANCE,URINE CLEAR; BILIRUBIN,URINE NEGATIVE (NEGATIVE); GLUCOSE, URINE NEGATIVE (NEGATIVE); KETONES,URINE NEGATIVE (NEGATIVE); LEUKOCYTE ESTERASE,URINE NEGATIVE (NEGATIVE); NITRITE,URINE NEGATIVE (NEGATIVE); PROTEIN,URINE NEGATIVE (NEGATIVE); URINE SPECIFIC GRAVITY 1.018
[2016-10-21] MEDS ORDERED: PHARMACY COMMUNICATION ORDER MC NR (12:15)
[2016-10-21] MEDS ORDERED: VANCOMYCIN HCL 0 MG in DEXTROSE 5%-WATER 250 ML IV NR (12:15)
[2016-10-21] MEDS ORDERED: LEVALBUTEROL HCL NEB 1.25 MG/3 ML AMPUL NEB PRN (12:16)
[2016-10-21] MEDS ORDERED: FENTANYL CITRATE INJ/PF 100 MCG/2 ML AMPUL ONE (12:24)
[2016-10-21] MEDS ORDERED: IPRATROPIUM/ALBUTEROL 0.5-2.5 MG/3 ML AMPUL NEB SCH (12:30)
[2016-10-21] MEDS ORDERED: VECURONIUM BROMIDE INJ 10 MG VIAL IV ONE (12:30)
[2016-10-21] MEDS ORDERED: NORMAL SALINE 1000 ML 2,000 ML IV ONE (13:15)
[2016-10-21] MEDS: NORMAL SALINE 1000 ML 1,000 ML IV PRN ×2 (13:19→18:44)
[2016-10-21] MEDS ORDERED: NORMAL SALINE 1000 ML 1,000 ML IV ONE (13:29)
--- NOTE | 2016-10-21 14:03 | PDOC H&P ---
History of Present Illness Admission Date/PCP: 10/21/16 12:18 LINDSEY RIVERA MD History of Present Illness: CLEMENTINA KAISER is a 60 year old male who was recently discharged 5 days ago for pneumonia. Beginning 4 days ago, patient had worsening shortness of breath which began culminating today at 1 AM. Patient became acutely short of breath and presented to the emergency department where attempts were made to bridge him on BiPAP, but failed. Patient was intubated limiting full history of present illness at this time. Subsequently patient has developed a tension pneumothorax which has now undergone needle decompression and chest tube placement in the emergency department as well as central line placement. He is referred to the hospitalist service for his sepsis with pneumonia and acute on chronic respiratory failure. Past Medical History Cardiac Medical History: Reports: Congestive Heart Failure - Diastolic Pulmonary Medical History: Reports: Asthma, Bronchitis, Chronic Obstructive Pulmonary Disease (COPD) - Emphysema, Pneumonia Neurological Medical History: Psychiatric Medical History: Reports: Depression - No suicidal or homicidal ideation. Past Surgical History Past Surgical History: Reports: Appendectomy, Orthopedic Surgery - back x3, Tonsillectomy, Other - Hemorrhoidectomy, eardrum surgery Social History Smoking Status: Former Smoker Frequency of Alcohol Use: None Hx Recreational Drug Use: No Drugs: None Hx Prescription Drug Abuse: No - Advance Directive Resuscitation Status: Full Code Surrogate healthcare decision maker:: Family History Family History: CAD, DM - Sister, Other - Sister with connective tissue disorder Parental Family History Reviewed: No - unable Children Family History Reviewed: No Sibling(s) Family History Reviewed.: No Medication/Allergy Allergies/Adverse Reactions: diltiazem Adverse Reaction (Intermediate, Verified 10/19/16 19:00) cough Review of Systems ROS unobtainable: Due to endotracheal tube Physical Exam Vital Signs: Temp Pulse Resp BP Pulse Ox 98.2 F 131 H 14 108/71 96 10/21/16 10:28 10/21/16 13:03 10/21/16 13:03 10/21/16 12:05 10/21/16 13:03 General appearance: PRESENT: severe distress, well-developed, well-nourished, other - Diaphoretic, acutely ill-appearing, moses Head exam: PRESENT: atraumatic, normocephalic Eye exam: PRESENT: conjunctiva pink, EOMI, periorbital swelling, PERRLA. ABSENT : scleral icterus Ear exam: PRESENT: normal external ear exam Mouth exam: PRESENT: moist, tongue midline. ABSENT: neck supple - Subcutaneous air Neck exam: PRESENT: tracheal deviation - Deviation to the right, other - Subcutaneous air. ABSENT: JVD, lymphadenopathy, thyromegaly Respiratory exam: PRESENT: accessory muscle use, decreased breath sounds - Absent breath sounds on the right, prolonged expiratory phas, rales, tachypnea. ABSENT: rhonchi, symmetrical - Asymmetric, unlabored, wheezes Cardiovascular exam: PRESENT: RRR, +S1, +S2, systolic murmur, tachycardia. ABSENT: diastolic murmur, rubs Pulses: PRESENT: normal dorsalis pedis pul Vascular exam: PRESENT: normal capillary refill GI/Abdominal exam: PRESENT: distended, hypoactive bowel sounds, normal bowel sounds, soft. ABSENT: firm, guarding, mass, organolmegaly, rebound, rigid, tenderness Rectal exam: PRESENT: deferred Extremities exam: PRESENT: clubbing. ABSENT: pedal edema Neurological exam: PRESENT: other - Intubated and sedated Psychiatric exam: PRESENT: other - Intubated and sedated Skin exam: PRESENT: intact, mottled, pallor, warm. ABSENT: cyanosis, dry - Diaphoretic, rash Results Impressions: Chest X-Ray 10/21/16 11:33 IMPRESSION: End-stage appearance of obstructive lung disease Vascular crowding with alveolar and interstitial infiltrates at the bases could represent pulmonary edema or pneumonia. Nasogastric tube tip and side port in the distal esophagus, could be advanced 10 cm Endotracheal tube tip in the mid to upper trachea Assessment & Plan - Diagnosis (1) Acute on chronic respiratory failure with hypoxia and hypercapnia Is this a current diagnosis for this admission?: YesPlan: Patient currently intubated. Patient at baseline has end-stage COPD. Will consult his glass cleaning machine tender Dr. neff. (2) Tension pneumothorax Is this a current diagnosis for this admission?: YesPlan: Patient is status post needle decompression and subsequent chest tube placement. Chest tube to suction. (3) Pneumonia Qualifiers: Pneumonia type: due to unspecified organism Laterality: unspecified laterality Lung location: unspecified part of lung Qualified Code(s) : J18.9 - Pneumonia, unspecified organism Is this a current diagnosis for this admission?: YesPlan: Patient has had multiple recent pneumonia. Will place patient on vancomycin and Zosyn as well as azithromycin. Like for pulmonology to perform a bronchoscopy for other organisms including MAC and fungus. Obtain sputum specimens. (4) Sepsis Qualifiers: Sepsis type: sepsis due to unspecified organism Qualified Code(s): A41.9 - Sepsis, unspecified organism Is this a current diagnosis for this admission?: YesPlan: Will cover patient broadly and empirically for healthcare associated pneumonia as he was discharged 5 days ago with vancomycin, Zosyn, and azithromycin. His reports to me that she's had influenza which was documented with a flu swab (5) COPD exacerbation Is this a current diagnosis for this admission?: YesPlan: Have place patient on high-dose [place]. Patient is currently steroid dependent normally on 30 mg of prednisone daily. Scheduled nebulized treatments. (6) Anemia Is this a current diagnosis for this admission?: Yes (7) Chronic pain Qualifiers: Chronic pain type: other chronic pain Qualified Code(s): G89.29 - Other chronic pain Is this a current diagnosis for this admission?: Yes (8) Chronic prescription benzodiazepine use Is this a current diagnosis for this admission?: Yes (9) Chronic prescription opiate use Is this a current diagnosis for this admission?: Yes (10) Diastolic CHF Qualifiers: Congestive heart failure chronicity: chronic Qualified Code(s): I50.32 - Chronic diastolic (congestive) heart failure Is this a current diagnosis for this admission?: YesPlan: We'll be judicious with patients fluid administration. Anticipate that due to overall poor nutrition, chronic steroid usage, and need for IV fluids and acute illness that he will require diuresis patient is currently mildly hypotensive. - Time Critical Time spent with patient: 35 or more minutes Medications reviewed and adjusted accordingly: Yes - Inpatient Certification Based on my medical assessment, after consideration of the patient's comorbidities, presenting symptoms, or acuity I expect that the services needed warrant INPATIENT care.: Yes I certify that my determination is in accordance with my understanding of Medicare's requirements for reasonable and necessary INPATIENT services [42 CFR 412.3e].: Yes Medical Necessity: Need for IV Antibiotics Post Hospital Care: D/C Fish Technologist Documentation
[2016-10-21] MEDS ORDERED: ALPRAZOLAM 0.5 MG TABLET NG PRN (15:55)
[2016-10-21 16:01] LABS: ARTERIAL BLOOD BASE EXCESS 1.1 mmol/L; ARTERIAL BLOOD O2 SATURATION 97.6 % (94-98)
[2016-10-21] MEDS: PIPERACILLIN SODIUM/TAZOBACTAM 4.5 GM in NORMAL SALINE 100 ML IV SCH ×2 (16:01→20:49)
[2016-10-21] MEDS ORDERED: METHYLPREDNISOLONE INJ 125 MG/2 ML SDV IV ONE (16:10)
[2016-10-21] MEDS ORDERED: NORMAL SALINE INJ/PF 0.9% 10 ML SDV IV PRN (16:13)
[2016-10-21] MEDS: IPRATROPIUM/ALBUTEROL 0.5-2.5 MG/3 ML AMPUL NEB SCH ×2 (16:36→20:25)
[2016-10-21] MEDS: SUCRALFATE 1 GM TABLET PO SCH ×2 (16:47→21:45)
[2016-10-21] MEDS: MIDAZOLAM HCL 100 ML IV PRN (16:47)
[2016-10-21] MEDS ORDERED: ROCURONIUM BROMIDE INJ 50 MG/5 ML VIAL IV ONE ×2 (17:00→20:44)
[2016-10-21] MEDS ORDERED: FUROSEMIDE INJ/PF 20 MG/2 ML SDV IV ONE (17:33)
[2016-10-21] MEDS ORDERED: DEXTROSE 5%-WATER 250 ML with NOREPINEPHRINE BITARTRATE 4 MG IV PRN ×2 (17:35)
[2016-10-21] MEDS: PROPOFOL 100 ML IV PRN (18:44)
[2016-10-21] MEDS: METOCLOPRAMIDE HCL 10 MG TABLET NG SCH ×2 (18:48→23:12)
[2016-10-21] MEDS: METHYLPREDNISOLONE INJ 125 MG/2 ML SDV IV SCH ×2 (18:48→23:12)
[2016-10-21] MEDS: BUDESONIDE NEB 0.5 MG/2 ML AMPUL NEB SCH (20:26)
[2016-10-21] MEDS: HEPARIN SOD (PORCINE) 5,000 UNIT/ML 1 ML SYRINGE SUBCUT SCH ×2 (20:45→21:46)
[2016-10-21] MEDS: PANTOPRAZOLE SODIUM 40 MG VIAL IV SCH (21:44)
[2016-10-21] MEDS: FENTANYL CITRATE INJ/PF 100 MCG/2 ML AMPUL IV PRN (21:45)
[2016-10-21] MEDS: FUROSEMIDE INJ/PF 20 MG/2 ML SDV IV SCH (21:45)
[2016-10-21] MEDS: DEXTROSE 5%-WATER 250 ML with PHENYLEPHRINE HCL 40 MG IV PRN ×2 (22:22)
[2016-10-21] MEDS: VANCOMYCIN HCL 1,000 MG in DEXTROSE 5%-WATER 250 ML IV SCH (23:12)
[2016-10-22] MEDS ORDERED: VANCOMYCIN HCL 750 MG in DEXTROSE 5%-WATER 250 ML IV SCH ×2
[2016-10-22] MEDS: IPRATROPIUM/ALBUTEROL 0.5-2.5 MG/3 ML AMPUL NEB SCH ×6 (00:01→20:22)
[2016-10-22] MEDS: PROPOFOL 100 ML IV PRN ×5 (00:46→22:28)
[2016-10-22] MEDS: NORMAL SALINE 1000 ML 1,000 ML IV PRN ×4 (01:57→22:19)
[2016-10-22] MEDS: PIPERACILLIN SODIUM/TAZOBACTAM 4.5 GM in NORMAL SALINE 100 ML IV SCH ×4 (02:01→21:50)
[2016-10-22] MEDS: MIDAZOLAM HCL 100 ML IV PRN ×2 (03:26→16:30)
[2016-10-22] MEDS: DEXTROSE 5%-WATER 250 ML with PHENYLEPHRINE HCL 40 MG IV PRN ×6 (04:20→22:19)
[2016-10-22 05:17] LABS: ARTERIAL BLOOD BASE EXCESS 5.1 mmol/L; ARTERIAL BLOOD O2 SATURATION 91.1 % (94-98)
[2016-10-22] MEDS: METOCLOPRAMIDE HCL 10 MG TABLET NG SCH ×3 (05:33→18:14)
[2016-10-22] MEDS: METHYLPREDNISOLONE INJ 125 MG/2 ML SDV IV SCH ×3 (05:33→18:15)
[2016-10-22] MEDS: HEPARIN SOD (PORCINE) 5,000 UNIT/ML 1 ML SYRINGE SUBCUT SCH ×3 (05:34→21:52)
[2016-10-22 05:42] LABS: ALANINE AMINOTRANSFERASE 36 U/L (21-72); ALBUMIN 2.6 g/dL (3.5-5.0); ALKALINE PHOSPHATASE 71 U/L (38-126); ANION GAP 8 (5-19); ASPARTATE AMINO TRANSFERASE 15 U/L (17-59); BILIRUBIN,TOTAL 0.8 mg/dL (0.2-1.3); BLOOD UREA NITROGEN 17 mg/dL (7-20); CALCIUM 7.9 mg/dL (8.4-10.2); CARBON DIOXIDE 31 mmol/L (22-30); CHLORIDE 102 mmol/L (98-107); CREATININE RESULT 0.86 mg/dL (0.52-1.25); GLUCOSE 142 mg/dL (75-110); SODIUM 141.2 mmol/L (137-145); TOTAL PROTEIN 5.1 g/dL (6.3-8.2)
[2016-10-22] MEDS: FENTANYL CITRATE INJ/PF 100 MCG/2 ML AMPUL IV PRN ×3 (05:43→18:13)
[2016-10-22 05:49] LABS: POTASSIUM 2.8 mmol/L (3.6-5.0)
[2016-10-22 06:02] LABS: HGB HCT DIFFERENCE 0.1; MEAN CORPUSCULAR HEMOGLOBIN 27.3 pg (27.0-33.4); MEAN CORPUSCULAR HGB CONC 33.4 g/dL (32.0-36.0); MEAN CORPUSCULAR VOLUME 82 fl (80-97); RED BLOOD COUNT 3.18 10^6/uL (4.35-5.55); RED CELL DISTRIBUTION WIDTH 22.6 % (11.5-14.0)
[2016-10-22] MEDS ORDERED: POTASSIUM CHLORIDE 20 MEQ/15 ML UDCUP ONE (06:13)
[2016-10-22] MEDS ORDERED: POTASSI CL 20 MEQ/50 ML RIDER 20 MEQ/50 ML RTUPB IV ONE (06:13)
[2016-10-22] MEDS ORDERED: POTASSIUM CHLORIDE 20 MEQ/15 ML UDCUP NG ONE ×2 (06:15→07:58)
[2016-10-22] MEDS: POTASSIUM CHLORIDE 20 MEQ/50 ML RTU IV SCH ×2 (06:21→08:45)
[2016-10-22 06:46] LABS: HEMOGLOBIN 8.7 g/dL (13.5-17.0)
[2016-10-22] MEDS ORDERED: BUDESONIDE NEB 0.5 MG/2 ML AMPUL NEB SCH (08:00)
[2016-10-22] MEDS: BUDESONIDE NEB 0.5 MG/2 ML AMPUL NEB SCH ×2 (08:07→20:22)
--- NOTE | 2016-10-22 08:11 | PDOC CONSULTATION ---
Consultation Consult Date: 10/21/16 Attending physician:: MIL CARTER Consult reason:: resp failure History of Present Illness Admission Date/PCP: 10/21/16 12:18 LINDSEY RIVERA MD History of Present Illness: CLEMENTINA KAISER is a 60 year old male who was recently discharged 5 days ago for pneumonia. Beginning 4 days ago, patient had worsening shortness of breath which began culminating today at 1 AM. Patient became acutely short of breath and presented to the emergency department where attempts were made to bridge him on BiPAP, but failed. Patient was intubated limiting full history of present illness at this time. Subsequently patient has developed a tension pneumothorax which has now undergone needle decompression and chest tube placement in the emergency department as well as central line placement. He is referred to the hospitalist service for his sepsis with pneumonia and acute on chronic respiratory failure. He is well-known to the pulmonary service and has had multiple episodes of exacerbations of his emphysema chronic respiratory failure hypercapnic as well as hypoxic and frequent bouts of steroid dependency Past Medical History Cardiac Medical History: Reports: Congestive Heart Failure - Diastolic Pulmonary Medical History: Reports: Asthma, Bronchitis, Chronic Obstructive Pulmonary Disease (COPD) - Emphysema, Pneumonia Neurological Medical History: Psychiatric Medical History: Reports: Depression - No suicidal or homicidal ideation. Past Surgical History Past Surgical History: Reports: Appendectomy, Orthopedic Surgery - back x3, Tonsillectomy, Other - Hemorrhoidectomy, eardrum surgery Social History Information Source: Dr. Abraham, [facility] Records Lives with: Family Smoking Status: Former Smoker Cigarettes Packs Per Day: 2 Number of Years Smokin Passive smoke exposure as: Both Frequency of Alcohol Use: None Hx Recreational Drug Use: No Drugs: None Hx Prescription Drug Abuse: No Do you have pets?: No Have you had any respiratory illnesses as a child?: No Have you been exposed to any sick contacts recently?: No Have you had any recent respiratory illnesses?: Yes Have you travelled outside of [place] in the past 12 months?: No Family History Family History: CAD, DM - Sister, Other - Sister with connective tissue disorder Parental Family History Reviewed: No Children Family History Reviewed: No Sibling(s) Family History Reviewed.: No Medication/Allergy Home Medications: Aclidinium [place] [Tudorza Pressair] 400 mcg IH BID 10/21/16 Albuterol Sulfate [Proair HFA Inhalation Aerosol 8.5 gm MDI] 2 puff IH Q4HP PRN 10/21/16 Alprazolam [Xanax] 1 mg PO QHS PRN 10/21/16 Budesonide [Pulmicort Neb 0.5 mg/2 ml Ampul] 0.5 mg NEB RTDAILY 10/21/16 Cetirizine HCl [Zyrtec] 10 mg PO DAILY 10/21/16 Chlorthalidone [Chlorthalidone 25 mg Tablet] 25 mg PO DAILY 10/21/16 Docusate Sodium [Colace 100 mg Capsule] 100 mg PO BID 10/21/16 Doxycycline Hyclate [Vibramycin] 100 mg PO BID 10/21/16 Ferrous Sulfate [Feosol 325 mg Tablet] 325 mg PO DAILY 10/21/16 Fluticasone Propionate [Flonase Nasal [place] 50 Mcg/[place] 16 gm] 1 spray NASL BID 10/21/16 Fluticasone/Salmeterol [Advair 500-50 Diskus 28 Dose] 1 puff IH BID 10/21/16 Formoterol Fumarate [Perforomist] 20 mcg IH BID 10/21/16 Gabapentin [Neurontin 300 mg Capsule] 300 mg PO TID 10/21/16 Ipratropium/Albuterol Sulfate [Duoneb 3 ml Ampul] 3 ml NEB RTQ6 10/21/16 Levalbuterol HCl [Xopenex Neb 0.63 mg/3 ml Ampul] 0.31 mg NEB RTQ4 10/21/16 Lidocaine [Lidoderm 5% (700 mg) Transdermal Patch] 1 patch TOP DAILY 10/21/16 Methadone HCl [Dolophine 10 mg Tablet] 20 mg PO BID 10/21/16 Metoclopramide HCl [Reglan] 5 mg PO Q6 10/21/16 Multivitamins with Iron [Daily Multivitamin with Iron] 1 each PO DAILY 10/21/16 Omeprazole 20 mg PO DAILY 10/21/16 Paroxetine HCl [Paxil 20 mg Tablet] 20 mg PO DAILY 10/21/16 Potassium 99 mg PO DAILY 10/21/16 Prednisone [Deltasone 20 mg Tablet] 20 mg PO BID 10/21/16 Sucralfate [Carafate 1 gm Tablet] 1 gm PO ACHS 10/21/16 Terazosin HCl [Hytrin] 2 mg PO QHS 10/21/16 Allergies/Adverse Reactions: diltiazem Adverse Reaction (Intermediate, Verified 10/19/16 19:00) cough Review of Systems ROS unobtainable: Due to endotracheal tube Physical Exam Vital Signs: Temp Pulse Resp BP Pulse Ox 98.2 F 131 H 14 89/63 L 94 10/21/16 10:28 10/21/16 13:03 10/21/16 13:25 10/21/16 13:25 10/21/16 13:25 General appearance: PRESENT: no acute distress, disheveled, obese Head exam: PRESENT: atraumatic, normocephalic Eye exam: PRESENT: conjunctiva pale Mouth exam: PRESENT: neck supple, other - Endotracheal tube in place Neck exam: ABSENT: carotid bruit, JVD, lymphadenopathy, thyromegaly Respiratory exam: PRESENT: decreased breath sounds, prolonged expiratory phas, rhonchi, symmetrical, unlabored, wheezes, other - Right-sided chest tube right sided lateral subcutaneous emphysema Cardiovascular exam: PRESENT: RRR, +S1, +S2 Pulses: PRESENT: normal radial pulses GI/Abdominal exam: PRESENT: normal bowel sounds, soft. ABSENT: distended, guarding, mass, organolmegaly, rebound, tenderness Rectal exam: PRESENT: deferred Gentrourinary exam: PRESENT: indwelling catheter Musculoskeletal exam: PRESENT: normal inspection Skin exam: PRESENT: dry, warm Results Impressions: Chest X-Ray 10/21/16 11:33 IMPRESSION: End-stage appearance of obstructive lung disease Vascular crowding with alveolar and interstitial infiltrates at the bases could represent pulmonary edema or pneumonia. Nasogastric tube tip and side port in the distal esophagus, could be advanced 10 cm Endotracheal tube tip in the mid to upper trachea Assessment & Plan - Diagnosis (1) Tension pneumothorax Is this a current diagnosis for this admission?: YesPlan: Right chest tube place tension pneumothorax appears to be resolved (2) Acute on chronic respiratory failure with hypoxia and hypercapnia Is this a current diagnosis for this admission?: YesPlan: Tachypneic becoming somnolent was subsequently intubated in the emergency room bronchodilator therapy patient has had long-standing disease his prospects for successful extubation at this time limited (3) COPD (chronic obstructive pulmonary disease) Is this a current diagnosis for this admission?: YesPlan: Continue current bronchodilator therapy (4) RLL pneumonia Qualifiers: Pneumonia type: due to unspecified organism Qualified Code(s): J18.1 - Lobar pneumonia, unspecified organism Is this a current diagnosis for this admission?: YesPlan: Continue antibiotics as initiate cultures when possible - Time Critical Time spent with patient: 35 or more minutes - 70 min
[2016-10-22] MEDS: SUCRALFATE 1 GM TABLET PO SCH ×4 (08:46→21:54)
--- NOTE | 2016-10-22 08:58 | PDOC PROGRESS REPORT ---
Subjective Progress Note for:: 10/22/16 Subjective:: intubated Physical Exam Vital Signs: Temp Pulse Resp BP Pulse Ox 98.8 F 97 12 112/68 93 10/22/16 05:22 10/22/16 04:30 10/22/16 04:30 10/22/16 05:55 10/22/16 06:00 Pulse Oximeter Continuous Start: 10/21/16 12: 19 Freq: RTQ4 Status: Hold Document 10/22/16 00:01 DAVIDE (Rec: 10/22/16 00:12 [email or web address] [email or web address]) Pulse Oximetry Assessment Oxygen Saturation (92-100) 97 Oxygen Delivery Method Mechanical Ventilator Fraction of Inspired Oxygen (FIO2) 40 Equipment Usage Equipment in Use Continuous SpO2 Machine # icu Intake & Output 10/21/16 10/22/16 10/23/16 06:59 06:59 06:59 Output Total 3417 Balance -3417 Weight 85.8 kg General appearance: PRESENT: no acute distress, disheveled, obese Head exam: PRESENT: atraumatic, normocephalic Eye exam: PRESENT: conjunctiva pale Mouth exam: PRESENT: neck supple, tongue midline, other - ET tube Neck exam: ABSENT: carotid bruit, JVD, lymphadenopathy, thyromegaly Respiratory exam: PRESENT: decreased breath sounds, prolonged expiratory phas, rhonchi, other - increased airflow Cardiovascular exam: PRESENT: RRR, +S1, +S2 Pulses: PRESENT: normal radial pulses GI/Abdominal exam: PRESENT: normal bowel sounds, soft. ABSENT: distended, guarding, mass, organolmegaly, rebound, tenderness Rectal exam: PRESENT: deferred Gentrourinary exam: PRESENT: indwelling catheter Extremities exam: PRESENT: +1 edema Skin exam: PRESENT: dry, warm Results Laboratory Results: 10/22/16 04:55 10/22/16 04:55 10/21/16 10/22/16 10/22/16 15:45 04:55 04:55 WBC 21.0 H RBC 3.18 L Hgb 8.7 L D Hct 26.0 L MCV 82 MCH 27.3 MCHC 33.4 RDW 22.6 H Plt Count 316 Carbonic Acid 1.71 H 1.77 H HCO3/H2CO3 Ratio 16:1 17:1 ABG pH 7.31 L 7.35 ABG pCO2 56.7 H 58.9 H ABG pO2 111.3 H 64.5 L ABG HCO3 28.0 H 31.8 H ABG O2 Saturation 97.6 91.1 L ABG Base Excess 1.1 5.1 FiO2 45% 40% Sodium Potassium Chloride Carbon Dioxide Anion Gap BUN Creatinine Est GFR ( Amer) Est GFR (Non-Af Amer) Glucose Calcium Magnesium Total Bilirubin AST ALT Alkaline Phosphatase Total Protein Albumin 10/22/16 04:55 WBC RBC Hgb Hct MCV MCH MCHC RDW Plt Count Carbonic Acid HCO3/H2CO3 Ratio ABG pH ABG pCO2 ABG pO2 ABG HCO3 ABG O2 Saturation ABG Base Excess FiO2 Sodium 141.2 Potassium 2.8 L* D Chloride 102 Carbon Dioxide 31 H Anion Gap 8 BUN 17 Creatinine 0.86 Est GFR ( Amer) > 60 Est GFR (Non-Af Amer) > 60 Glucose 142 H Calcium 7.9 L Magnesium 2.0 Total Bilirubin 0.8 AST 15 L ALT 36 Alkaline Phosphatase 71 Total Protein 5.1 L Albumin 2.6 L Impressions: KUB X-Ray 10/21/16 12:13 IMPRESSION: A nasogastric tube tip at the GE junction, side port in the distal esophagus Right basilar chest tube in place. No basilar pneumothorax. Small amount of right axillary chest wall air. Consolidation with air bronchograms in the medial right lower lobe. Chest X-Ray 10/22/16 06:00 IMPRESSION: Small right apical pneumothorax. Assessment & Plan - Diagnosis (1) Tension pneumothorax Is this a current diagnosis for this admission?: YesPlan: Right chest tube place tension pneumothorax appears to be resolved;apical pneumothorax persist; air leak pleura-vac persist (2) Acute on chronic respiratory failure with hypoxia and hypercapnia Is this a current diagnosis for this admission?: YesPlan: ABG acceptable at this timed (3) COPD (chronic obstructive pulmonary disease) Is this a current diagnosis for this admission?: YesPlan: Continue current bronchodilator therapy (4) RLL pneumonia Qualifiers: Pneumonia type: due to unspecified organism Qualified Code(s): J18.1 - Lobar pneumonia, unspecified organism Is this a current diagnosis for this admission?: YesPlan: Continue antibiotics - Time Critical Time spent with patient: 35 or more minutes
--- NOTE | 2016-10-22 09:08 | PDOC PROGRESS REPORT ---
Subjective Progress Note for:: 10/22/16 Subjective:: Patient remains intubated and sedated. No acute events overnight. Patient remains on Ananth-Synephrine. Unable to obtain review of systems secondary to intubated and sedated status. Patient seen at bedside with pulmonology, respiratory therapy and nursing. Physical Exam Vital Signs: Temp Pulse Resp BP Pulse Ox 98.8 F 97 12 112/68 93 10/22/16 05:22 10/22/16 04:30 10/22/16 04:30 10/22/16 05:55 10/22/16 06:00 Pulse Oximeter Continuous Start: 10/21/16 12: 19 Freq: RTQ4 Status: Hold Document 10/22/16 00:01 DAVIDE (Rec: 10/22/16 00:12 [email or web address] [email or web address]) Pulse Oximetry Assessment Oxygen Saturation (92-100) 97 Oxygen Delivery Method Mechanical Ventilator Fraction of Inspired Oxygen (FIO2) 40 Equipment Usage Equipment in Use Continuous SpO2 Machine # icu Intake & Output 10/21/16 10/22/16 10/23/16 06:59 06:59 06:59 Output Total 3417 Balance -3417 Weight 85.8 kg Exam: General: Intubated and sedated and paralyzed, no acute respiratory distress HEENT: AT/NC, PERRL, oropharynx is moist, pink, no scleral icterus, no conjunctival injection Neck: Unable to appreciate JVD secondary to subcutaneous air and body habitus, trachea midline Chest: Subcutaneous emphysema on right upper chest, right chest tube in place, diminished, but overall improved airflow, no overt wheezes rhonchi or rales CV: Regular rate and rhythm, normal S1 and S2, no rub or gallop Abdomen: Soft, nontender to palpation, nondistended, hypoactive bowel sounds Extremities: No cyanosis; digital clubbing; 1+ edema Results Laboratory Results: 10/22/16 04:55 10/22/16 04:55 10/21/16 10/22/16 10/22/16 15:45 04:55 04:55 WBC 21.0 H RBC 3.18 L Hgb 8.7 L D Hct 26.0 L MCV 82 MCH 27.3 MCHC 33.4 RDW 22.6 H Plt Count 316 Carbonic Acid 1.71 H 1.77 H HCO3/H2CO3 Ratio 16:1 17:1 ABG pH 7.31 L 7.35 ABG pCO2 56.7 H 58.9 H ABG pO2 111.3 H 64.5 L ABG HCO3 28.0 H 31.8 H ABG O2 Saturation 97.6 91.1 L ABG Base Excess 1.1 5.1 FiO2 45% 40% Sodium Potassium Chloride Carbon Dioxide Anion Gap BUN Creatinine Est GFR ( Amer) Est GFR (Non-Af Amer) Glucose Calcium Magnesium Total Bilirubin AST ALT Alkaline Phosphatase Total Protein Albumin 10/22/16 04:55 WBC RBC Hgb Hct MCV MCH MCHC RDW Plt Count Carbonic Acid HCO3/H2CO3 Ratio ABG pH ABG pCO2 ABG pO2 ABG HCO3 ABG O2 Saturation ABG Base Excess FiO2 Sodium 141.2 Potassium 2.8 L* D Chloride 102 Carbon Dioxide 31 H Anion Gap 8 BUN 17 Creatinine 0.86 Est GFR ( Amer) > 60 Est GFR (Non-Af Amer) > 60 Glucose 142 H Calcium 7.9 L Magnesium 2.0 Total Bilirubin 0.8 AST 15 L ALT 36 Alkaline Phosphatase 71 Total Protein 5.1 L Albumin 2.6 L Impressions: KUB X-Ray 10/21/16 12:13 IMPRESSION: A nasogastric tube tip at the GE junction, side port in the distal esophagus Right basilar chest tube in place. No basilar pneumothorax. Small amount of right axillary chest wall air. Consolidation with air bronchograms in the medial right lower lobe. Chest X-Ray 10/22/16 06:00 IMPRESSION: Small right apical pneumothorax. Assessment & Plan - Diagnosis (1) Septic shock Is this a current diagnosis for this admission?: YesPlan: Patient with septic shock secondary to pneumonia. Currently on Ananth-Synephrine. Will give albumin attempt to wean. (2) Acute on chronic respiratory failure with hypoxia and hypercapnia Is this a current diagnosis for this admission?: YesPlan: Patient currently intubated. Patient at baseline has end-stage COPD. appreciate input from tool shaper setup operator Dr. neff. (3) Tension pneumothorax Is this a current diagnosis for this admission?: YesPlan: Patient is status post needle decompression and subsequent chest tube placement. Chest tube to suction. Patient with residual small pneumothorax (4) Pneumonia Qualifiers: Pneumonia type: due to unspecified organism Laterality: unspecified laterality Lung location: unspecified part of lung Qualified Code(s) : J18.9 - Pneumonia, unspecified organism Is this a current diagnosis for this admission?: YesPlan: Patient has had multiple recent pneumonia. Will place patient on vancomycin and Zosyn as well as azithromycin. Currently pending culture. Will discuss possibility of bronchoscopy. (5) Sepsis Qualifiers: Sepsis type: sepsis due to unspecified organism Qualified Code(s): A41.9 - Sepsis, unspecified organism Is this a current diagnosis for this admission?: YesPlan: Patient currently being treated for pneumonia. Now with septic shock. On Ananth- Synephrine. (6) COPD exacerbation Is this a current diagnosis for this admission?: YesPlan: Have place patient on high-dose Solu-Medrol. Patient is currently steroid dependent normally on 30 mg of prednisone daily. Scheduled nebulized treatments. Continue scheduled nebulized treatments (7) Anemia Qualifiers: Anemia type: unspecified type Qualified Code(s): D64.9 - Anemia, unspecified Is this a current diagnosis for this admission?: YesPlan: Check to see of previous iron labs have been performed if so then will hold on this at this time. Type and screen and transfuse if hemoglobin drops below 8. (8) Chronic pain Qualifiers: Chronic pain type: other chronic pain Qualified Code(s): G89.29 - Other chronic pain Is this a current diagnosis for this admission?: Yes (9) Chronic prescription benzodiazepine use Is this a current diagnosis for this admission?: YesPlan: Continue home Xanax. Ativan as needed (10) Chronic prescription opiate use Is this a current diagnosis for this admission?: YesPlan: Fentanyl patch, IV fentanyl when necessary. (11) Diastolic CHF Qualifiers: Congestive heart failure chronicity: chronic Qualified Code(s): I50.32 - Chronic diastolic (congestive) heart failure Is this a current diagnosis for this admission?: YesPlan: We'll be judicious with patients fluid administration. Anticipate that due to overall poor nutrition, chronic steroid usage, and need for IV fluids and acute illness that he will require diuresis patient is currently mildly hypotensive. (12) protein calorie malnourishment Is this a current diagnosis for this admission?: YesPlan: Have consulted dietary. Will initiate patient on Oxepa with a goal of 40 mL per hour and benaprotein 3 times a day. Overall, patient's poor nutritional status as well as cushingoid features are detrimental to patient's improvement. (13) Obesity Qualifiers: Obesity severity: non-morbid Is this a current diagnosis for this admission?: Yes - Time Critical Time spent with patient: 35 or more minutes Medications reviewed and adjusted accordingly: Yes
[2016-10-22] MEDS ORDERED: FENTANYL 50 MCG/HR PATCH.TD72 TD ONE (09:30)
[2016-10-22] MEDS: ALBUMIN HUMAN 50 ML IV SCH ×4 (09:48→11:27)
[2016-10-22] MEDS: POLYETHYLENE GLYCOL 3350 POWDER 17 GM/1 PACKET PO SCH (09:49)
[2016-10-22] MEDS: LACTULOSE SYRUP 20 GM/30 ML UDCUP NG SCH ×4 (09:49→21:52)
[2016-10-22] MEDS: PANTOPRAZOLE SODIUM 40 MG VIAL IV SCH ×2 (09:49→21:53)
[2016-10-22] MEDS: CETIRIZINE 10 MG TABLET NG SCH (09:49)
[2016-10-22] MEDS: FUROSEMIDE INJ/PF 20 MG/2 ML SDV IV SCH ×2 (09:50→21:51)
[2016-10-22] MEDS: LIDOCAINE 5% (700 MG) TRANSDERMAL ADH..PATCH TOP SCH (09:50)
[2016-10-22] MEDS ORDERED: ACETYLCYSTEINE 20% SOLN 800 MG/4 ML VIAL.NEB NEB PRN (10:00)
[2016-10-22 10:22] LABS: PROTHROMBIN TIME 14.5 SEC (11.4-15.4)
[2016-10-22 10:23] LABS: PARTIAL THROMBOPLASTIN TIME 34.9 SEC (23.5-35.8)
[2016-10-22] MEDS: AZITHROMYCIN 500 MG in DEXTROSE 5%-WATER 250 ML IV SCH (10:26)
[2016-10-22] MEDS: VANCOMYCIN HCL 1,000 MG in DEXTROSE 5%-WATER 250 ML IV SCH (11:34)
[2016-10-22] MEDS: LORAZEPAM INJ 2 MG/1 ML VIAL IV PRN ×2 (14:02→18:13)
[2016-10-22] MEDS: ACETYLCYSTEINE 20% SOLN 800 MG/4 ML VIAL.NEB NEB SCH (20:22)
[2016-10-23] MEDS: VANCOMYCIN HCL 1,000 MG in DEXTROSE 5%-WATER 250 ML IV SCH ×2 (00:01→14:09)
[2016-10-23] MEDS: METOCLOPRAMIDE HCL 10 MG TABLET NG SCH ×3 (00:01→11:48)
[2016-10-23] MEDS: METHYLPREDNISOLONE INJ 125 MG/2 ML SDV IV SCH ×4 (00:01→21:49)
[2016-10-23] MEDS: IPRATROPIUM/ALBUTEROL 0.5-2.5 MG/3 ML AMPUL NEB SCH ×6 (00:05→20:27)
[2016-10-23] MEDS: LACTULOSE SYRUP 20 GM/30 ML UDCUP NG SCH ×2 (02:36→05:59)
[2016-10-23] MEDS: PROPOFOL 100 ML IV PRN ×3 (02:37→14:40)
[2016-10-23] MEDS: MIDAZOLAM HCL 100 ML IV PRN ×2 (02:37→11:50)
[2016-10-23] MEDS: PIPERACILLIN SODIUM/TAZOBACTAM 4.5 GM in NORMAL SALINE 100 ML IV SCH ×4 (02:38→20:46)
[2016-10-23] MEDS: NORMAL SALINE 500 ML with ROCURONIUM BROMIDE 500 MG IV PRN ×4 (05:00→20:14)
[2016-10-23 05:43] LABS: HEMATOCRIT 24.9 % (37.9-51.0); HEMOGLOBIN 8.3 g/dL (13.5-17.0); MEAN CORPUSCULAR HEMOGLOBIN 27.4 pg (27.0-33.4); MEAN CORPUSCULAR HGB CONC 33.5 g/dL (32.0-36.0); MEAN CORPUSCULAR VOLUME 82 fl (80-97); RED BLOOD COUNT 3.04 10^6/uL (4.35-5.55); RED CELL DISTRIBUTION WIDTH 21.6 % (11.5-14.0); WHITE BLOOD COUNT 16.5 10^3/uL (4.0-10.5)
[2016-10-23] MEDS: NORMAL SALINE 1000 ML 1,000 ML IV PRN (05:57)
[2016-10-23] MEDS: HEPARIN SOD (PORCINE) 5,000 UNIT/ML 1 ML SYRINGE SUBCUT SCH ×3 (05:58→21:50)
[2016-10-23 05:59] LABS: ALANINE AMINOTRANSFERASE 75 U/L (21-72); ALBUMIN 2.8 g/dL (3.5-5.0); ALKALINE PHOSPHATASE 242 U/L (38-126); ANION GAP 13 (5-19); ASPARTATE AMINO TRANSFERASE 31 U/L (17-59); BILIRUBIN,TOTAL 0.9 mg/dL (0.2-1.3); BLOOD UREA NITROGEN 13 mg/dL (7-20); CALCIUM 8.1 mg/dL (8.4-10.2); CARBON DIOXIDE 32 mmol/L (22-30); CHLORIDE 102 mmol/L (98-107); CREATININE RESULT 0.73 mg/dL (0.52-1.25); GLUCOSE 156 mg/dL (75-110); MAGNESIUM 2.1 mg/dL (1.6-2.3); PHOSPHORUS 3.2 mg/dL (2.5-4.5); SODIUM 146.6 mmol/L (137-145); TOTAL PROTEIN 5.1 g/dL (6.3-8.2)
[2016-10-23 06:04] LABS: ARTERIAL BLOOD BASE EXCESS 6.2 mmol/L; ARTERIAL BLOOD O2 SATURATION 95.2 % (94-98)
[2016-10-23 06:06] LABS: PREALBUMIN 7.9 mg/dL (17.6-36.0)
[2016-10-23 06:09] LABS: POTASSIUM 2.9 mmol/L (3.6-5.0)
[2016-10-23] MEDS ORDERED: POTASSI CL 20 MEQ/50 ML RIDER 20 MEQ/50 ML RTUPB IV ONE (07:25)
[2016-10-23] MEDS ORDERED: NORMAL SALINE 1000 ML 1,000 ML IV PRN (08:35)
[2016-10-23] MEDS: BUDESONIDE NEB 0.5 MG/2 ML AMPUL NEB SCH ×2 (08:42→20:28)
[2016-10-23] MEDS: ACETYLCYSTEINE 20% SOLN 800 MG/4 ML VIAL.NEB NEB SCH ×2 (08:42→20:27)
[2016-10-23] MEDS: SUCRALFATE 1 GM TABLET PO SCH ×4 (08:49→21:49)
[2016-10-23] MEDS: POTASSI CL 20 MEQ/50 ML RIDER 20 MEQ/50 ML RTUPB IV SCH ×3 (08:50→11:50)
[2016-10-23] MEDS ORDERED: FUROSEMIDE INJ/PF 40 MG/4 ML SDV IV ONE (09:15)
--- NOTE | 2016-10-23 10:04 | PDOC PROGRESS REPORT ---
Subjective Progress Note for:: 10/23/16 Subjective:: Patient remains intubated and sedated. No acute events overnight. Patient remains on small amount of Ananth-Synephrine. Unable to obtain review of systems secondary to intubated and sedated status. Physical Exam Vital Signs: Temp Pulse Resp BP Pulse Ox 98.8 F 96 16 121/81 98 10/22/16 05:22 10/23/16 04:20 10/23/16 04:20 10/23/16 06:29 10/23/16 06:29 Pulse Oximeter Continuous Start: 10/21/16 12: 19 Freq: RTQ4 Status: Hold Document 10/22/16 00:01 DAVIDE (Rec: 10/22/16 00:12 Molly [email or web address]) Pulse Oximetry Assessment Oxygen Saturation (92-100) 97 Oxygen Delivery Method Mechanical Ventilator Fraction of Inspired Oxygen (FIO2) 40 Equipment Usage Equipment in Use Continuous SpO2 Machine # icu Intake & Output 10/22/16 10/23/16 10/24/16 06:59 06:59 06:59 Intake Total 6829 Output Total 3417 5082 Balance -3417 1747 Weight 85.8 kg 87.2 kg Exam: General: Intubated and sedated and paralyzed, no acute respiratory distress HEENT: AT/NC, PERRL, oropharynx is moist, pink, slight scleral icterus, no conjunctival injection, + conjunctival edema Neck: Unable to appreciate JVD secondary to subcutaneous air and body habitus, trachea midline Chest: Subcutaneous emphysema on right upper chest, right chest tube in place, diminished, but overall improved airflow, no overt wheezes rhonchi or rales CV: Regular rate and rhythm, normal S1 and S2, no rub or gallop Abdomen: Soft, nontender to palpation, nondistended, hypoactive bowel sounds Extremities: No cyanosis; digital clubbing; 1+ edema Results Laboratory Results: 10/23/16 05:33 10/23/16 05:33 10/22/16 10/23/16 10/23/16 11:56 05:33 05:33 WBC 16.5 H RBC 3.04 L Hgb 8.3 L Hct 24.9 L MCV 82 MCH 27.4 MCHC 33.5 RDW 21.6 H Plt Count 308 Carbonic Acid HCO3/H2CO3 Ratio ABG pH ABG pCO2 ABG pO2 ABG HCO3 ABG O2 Saturation ABG Base Excess FiO2 Sodium 146.6 H Potassium 2.9 L* Chloride 102 Carbon Dioxide 32 H Anion Gap 13 BUN 13 Creatinine 0.73 Est GFR ( Amer) > 60 Est GFR (Non-Af Amer) > 60 Glucose 156 H Calcium 8.1 L Phosphorus 3.2 Magnesium 2.1 Total Bilirubin 0.9 AST 31 ALT 75 H Alkaline Phosphatase 242 H Total Protein 5.1 L Albumin 2.8 L Prealbumin 7.9 L Blood Type O POSITIVE Antibody Screen NEGATIVE 10/23/16 05:45 WBC RBC Hgb Hct MCV MCH MCHC RDW Plt Count Carbonic Acid 1.92 H HCO3/H2CO3 Ratio 17:1 ABG pH 7.34 L ABG pCO2 63.9 H ABG pO2 82.9 ABG HCO3 33.3 H ABG O2 Saturation 95.2 ABG Base Excess 6.2 FiO2 45% Sodium Potassium Chloride Carbon Dioxide Anion Gap BUN Creatinine Est GFR ( Amer) Est GFR (Non-Af Amer) Glucose Calcium Phosphorus Magnesium Total Bilirubin AST ALT Alkaline Phosphatase Total Protein Albumin Prealbumin Blood Type Antibody Screen Impressions: KUB X-Ray 10/21/16 12:13 IMPRESSION: A nasogastric tube tip at the GE junction, side port in the distal esophagus Right basilar chest tube in place. No basilar pneumothorax. Small amount of right axillary chest wall air. Consolidation with air bronchograms in the medial right lower lobe. Assessment & Plan - Diagnosis (1) Septic shock Is this a current diagnosis for this admission?: YesPlan: Patient with septic shock secondary to pneumonia. Currently on Ananth-Synephrine. Patient with an element of adrenal insufficiency and steroid dependence. Will initiate patient on Cortef 100 mg IV every 8. (2) Acute on chronic respiratory failure with hypoxia and hypercapnia Is this a current diagnosis for this admission?: YesPlan: Patient currently intubated. Patient at baseline has end-stage COPD. appreciate input from database design analyst Dr. neff. (3) Tension pneumothorax Is this a current diagnosis for this admission?: YesPlan: Patient is status post needle decompression and subsequent chest tube placement. Chest tube to suction. Patient with residual small pneumothorax (4) Pneumonia Qualifiers: Pneumonia type: due to unspecified organism Laterality: unspecified laterality Lung location: unspecified part of lung Qualified Code(s) : J18.9 - Pneumonia, unspecified organism Is this a current diagnosis for this admission?: YesPlan: Patient has had multiple recent pneumonia. Will place patient on vancomycin day #2 and Zosyn day #2 as well as azithromycin day #2. Currently pending culture. Will discuss possibility of bronchoscopy. In [place] at this time for atypical infections including Mac, Pseudomonas, or MRSA given patient's repeated past hospitalizations. Patient has had multiple episodes of Escherichia coli pneumonia. (5) Sepsis Qualifiers: Sepsis type: sepsis due to unspecified organism Qualified Code(s): A41.9 - Sepsis, unspecified organism Is this a current diagnosis for this admission?: YesPlan: Patient currently being treated for pneumonia. Now with septic shock. On Ananth- Synephrine. (6) COPD exacerbation Is this a current diagnosis for this admission?: YesPlan: Attempt to decrease Solu-Medrol to 125mg iv q8. Patient is currently steroid dependent normally on 30 mg of prednisone daily. Scheduled nebulized treatments. Continue scheduled nebulized treatments (7) Anemia Qualifiers: Anemia type: unspecified type Qualified Code(s): D64.9 - Anemia, unspecified Is this a current diagnosis for this admission?: YesPlan: Check to see of previous iron labs have been performed if so then will hold on this at this time. Type and screen and transfuse if hemoglobin drops below 8. (8) Chronic pain Qualifiers: Chronic pain type: other chronic pain Qualified Code(s): G89.29 - Other chronic pain Is this a current diagnosis for this admission?: Yes (9) Chronic prescription benzodiazepine use Is this a current diagnosis for this admission?: YesPlan: Continue home Xanax. Ativan as needed. Again will make weaning difficult (10) Chronic prescription opiate use Is this a current diagnosis for this admission?: YesPlan: Fentanyl patch, IV fentanyl when necessary. This will make weaning difficult. (11) Diastolic CHF Qualifiers: Congestive heart failure chronicity: acute on chronic Qualified Code (s): I50.33 - Acute on chronic diastolic (congestive) heart failure Is this a current diagnosis for this admission?: YesPlan: Patient currently unable to tolerate standard heart failure therapy due to hypotension. Continue diuresis with Lasix. (12) protein calorie malnourishment Is this a current diagnosis for this admission?: YesPlan: Have consulted dietary. Will initiate patient on Oxepa with a goal of 40 mL per hour and benaprotein 3 times a day. Patient's pre-albumin as 7.9. (13) Obesity Qualifiers: Obesity severity: non-morbid Is this a current diagnosis for this admission?: Yes - Time Critical Time spent with patient: 35 or more minutes Medications reviewed and adjusted accordingly: Yes
[2016-10-23] MEDS: CETIRIZINE 10 MG TABLET NG SCH (11:48)
[2016-10-23] MEDS: PANTOPRAZOLE SODIUM 40 MG VIAL IV SCH ×2 (11:48→21:49)
[2016-10-23] MEDS: AZITHROMYCIN 500 MG in DEXTROSE 5%-WATER 250 ML IV SCH (11:48)
[2016-10-23] MEDS: POTASSIUM CHLORIDE 20 MEQ/15 ML UDCUP NG SCH (11:49)
[2016-10-23] MEDS: FUROSEMIDE INJ/PF 20 MG/2 ML SDV IV SCH ×2 (11:49→21:48)
[2016-10-23] MEDS: POLYETHYLENE GLYCOL 3350 POWDER 17 GM/1 PACKET PO SCH (11:50)
[2016-10-23] MEDS: LIDOCAINE 5% (700 MG) TRANSDERMAL ADH..PATCH TOP SCH (11:52)
[2016-10-23] MEDS: FENTANYL CITRATE INJ/PF 100 MCG/2 ML AMPUL IV PRN ×3 (11:57→21:48)
[2016-10-23 12:37] LABS: FOLATE 8.06 ng/mL (>2.76)
[2016-10-23] MEDS: HYDROCORTISONE SOD SUCCINATE INJ/PF 100 MG/2 ML SDV IV SCH ×2 (14:17→21:49)
[2016-10-23] MEDS ORDERED: DILTIAZEM HCL INJ 25 MG/5 ML VIAL ONE (22:45)
[2016-10-23] MEDS: DEXTROSE 5%-WATER 250 ML with PHENYLEPHRINE HCL 40 MG IV PRN ×2 (22:45)
[2016-10-24] MEDS ORDERED: VANCOMYCIN HCL 1,250 MG in DEXTROSE 5%-WATER 250 ML IV SCH ×2
[2016-10-24] MEDS: IPRATROPIUM/ALBUTEROL 0.5-2.5 MG/3 ML AMPUL NEB SCH ×3 (00:31→08:37)
[2016-10-24] MEDS ORDERED: METOPROLOL TARTRATE PF/INJ 5 MG/5 ML SDV IV ONE ×2 (01:04→01:30)
[2016-10-24] MEDS: PROPOFOL 100 ML IV PRN ×2 (01:10→05:34)
[2016-10-24] MEDS: PIPERACILLIN SODIUM/TAZOBACTAM 4.5 GM in NORMAL SALINE 100 ML IV SCH ×2 (03:53→09:20)
[2016-10-24] MEDS: MIDAZOLAM HCL 100 ML IV PRN (05:34)
[2016-10-24] MEDS: HEPARIN SOD (PORCINE) 5,000 UNIT/ML 1 ML SYRINGE SUBCUT SCH (05:34)
[2016-10-24] MEDS: METHYLPREDNISOLONE INJ 125 MG/2 ML SDV IV SCH (05:35)
[2016-10-24] MEDS: HYDROCORTISONE SOD SUCCINATE INJ/PF 100 MG/2 ML SDV IV SCH (05:35)
[2016-10-24] MEDS: FENTANYL CITRATE INJ/PF 100 MCG/2 ML AMPUL IV PRN (05:36)
[2016-10-24 06:07] LABS: HEMATOCRIT 29.2 % (37.9-51.0); HEMOGLOBIN 9.6 g/dL (13.5-17.0); HGB HCT DIFFERENCE -0.4; MEAN CORPUSCULAR HEMOGLOBIN 27.1 pg (27.0-33.4); MEAN CORPUSCULAR VOLUME 82 fl (80-97); RED BLOOD COUNT 3.55 10^6/uL (4.35-5.55); RED CELL DISTRIBUTION WIDTH 21.6 % (11.5-14.0); WHITE BLOOD COUNT 18.3 10^3/uL (4.0-10.5)
[2016-10-24 06:09] LABS: ARTERIAL BLOOD BASE EXCESS 13.5 mmol/L; ARTERIAL BLOOD O2 SATURATION 86.7 % (94-98)
[2016-10-24 06:32] LABS: ALANINE AMINOTRANSFERASE 66 U/L (21-72); ALBUMIN 3.2 g/dL (3.5-5.0); ALKALINE PHOSPHATASE 240 U/L (38-126); ASPARTATE AMINO TRANSFERASE 20 U/L (17-59); BLOOD UREA NITROGEN 21 mg/dL (7-20); CHLORIDE 94 mmol/L (98-107); CREATININE RESULT 0.76 mg/dL (0.52-1.25); GLUCOSE 192 mg/dL (75-110); MAGNESIUM 2.3 mg/dL (1.6-2.3); PHOSPHORUS 2.9 mg/dL (2.5-4.5); SODIUM 146.3 mmol/L (137-145); TOTAL PROTEIN 5.9 g/dL (6.3-8.2); TRIGLYCERIDES 253 mg/dL (<150)
[2016-10-24 06:37] LABS: ANION GAP 12 (5-19)
[2016-10-24 06:45] LABS: CARBON DIOXIDE 40 mmol/L (22-30)
[2016-10-24 07:16] LABS: CALCIUM 8.6 mg/dL (8.4-10.2)
[2016-10-24] MEDS ORDERED: POTASSI CL 20 MEQ/50 ML RIDER 20 MEQ/50 ML RTUPB IV ONE (07:52)
[2016-10-24] MEDS: SUCRALFATE 1 GM TABLET PO SCH (07:53)
[2016-10-24] MEDS ORDERED: POTASSIUM CHLORIDE 20 MEQ/50 ML RTU IV SCH (08:15)
[2016-10-24] MEDS: BUDESONIDE NEB 0.5 MG/2 ML AMPUL NEB SCH (08:37)
[2016-10-24] MEDS: ACETYLCYSTEINE 20% SOLN 800 MG/4 ML VIAL.NEB NEB SCH (08:38)
[2016-10-24] MEDS ORDERED: FENTANYL 100 MCG/HR PATCH.TD72 TD ONE (09:15)
[2016-10-24] MEDS: PANTOPRAZOLE SODIUM 40 MG VIAL IV SCH (09:20)
[2016-10-24] MEDS: AZITHROMYCIN 500 MG in DEXTROSE 5%-WATER 250 ML IV SCH (09:21)
[2016-10-24] MEDS: POTASSIUM CHLORIDE 20 MEQ/15 ML UDCUP NG SCH (09:21)
[2016-10-24] MEDS: CETIRIZINE 10 MG TABLET NG SCH (09:21)
[2016-10-24] MEDS: POLYETHYLENE GLYCOL 3350 POWDER 17 GM/1 PACKET PO SCH (09:21)
[2016-10-24] MEDS: LIDOCAINE 5% (700 MG) TRANSDERMAL ADH..PATCH TOP SCH (09:23)
[2016-10-24] MEDS ORDERED: FENTANYL CITRATE INJ/PF 100 MCG/2 ML AMPUL IV PRN (10:00)
[2016-10-24] MEDS ORDERED: FENTANYL 50 MCG/HR PATCH.TD72 TD SCH ×2 (10:00)
[2016-10-24] MEDS ORDERED: LORAZEPAM INJ 2 MG/1 ML VIAL IV PRN (10:00)
[2016-10-24 10:05] VITALS: BP 131/78
[2016-10-24] MEDS ORDERED: HYDROMORPHONE HCL INJ/PF 2 MG/ML AMPULE IV ONE (10:30)
[2016-10-24] MEDS ORDERED: LORAZEPAM INJ 2 MG/1 ML VIAL IV ONE (10:30)
[2016-10-24] MEDS ORDERED: SCOPOLAMINE HYDROBROMIDE 1.5 MG PATCH.TD72 TD ONE (10:30)
[2016-10-24] MEDS ORDERED: ATROPINE SULFATE 1% OPH SOLN 5 ML BOTTLE SL SCH (12:00)
--- NOTE | 2016-10-24 18:00 | Death Summary ---
Summary Date : 10/24/16 Time of :: 11:08 Autopsy: No Resuscitation Status: Comfort Measures Only - Final Diagnosis (1) End stage COPD Is this a current diagnosis for this admission?: Yes (2) Septic shock Is this a current diagnosis for this admission?: Yes (3) Acute on chronic respiratory failure with hypoxia and hypercapnia Is this a current diagnosis for this admission?: Yes (4) Tension pneumothorax Is this a current diagnosis for this admission?: Yes (5) Pneumonia Is this a current diagnosis for this admission?: Yes (6) Sepsis Is this a current diagnosis for this admission?: Yes (7) COPD exacerbation Is this a current diagnosis for this admission?: Yes (8) Anemia Is this a current diagnosis for this admission?: Yes (9) Chronic pain Is this a current diagnosis for this admission?: Yes (10) Chronic prescription benzodiazepine use Is this a current diagnosis for this admission?: Yes (11) Chronic prescription opiate use Is this a current diagnosis for this admission?: Yes (12) Diastolic CHF Is this a current diagnosis for this admission?: Yes (13) protein calorie malnourishment Is this a current diagnosis for this admission?: Yes (14) Obesity Is this a current diagnosis for this admission?: Yes Hospital Course:: Patient is a 60-year-old male with an extensive past medical history involving severe COPD. Patient presented to the emergency department approximately 5 days after being previously discharged in extremis. Patient required intubation in the emergency department. While undergoing mechanical ventilation in the emergency department, patient suffered a spontaneous tension pneumothorax requiring needle decompression and subsequent right-sided thoracostomy placement. Patient was admitted to the ICU on Ananth-Synephrine for his septic shock. Patient was started on broad-spectrum antibiotics and high- dose IV corticosteroids due to patient's current steroid dependence. Tahir and candid discussions were had with his and sister by both myself and plant and machinery valuer, Dr. neff, and family elected to make patient comfort measures only and withdrew care today. Patient was terminally extubated and given fentanyl and Ativan for his discomfort. Patient in the company of his family at 1108. No autopsy was requested. Patient was pronounced by 2 RNs.
--- NOTE | 2016-10-30 16:34 | PDOC PROGRESS REPORT ---
Subjective Progress Note for:: 10/23/16 Subjective:: intubated Physical Exam Vital Signs: Temp Pulse Resp BP Pulse Ox 97.0 F 86 16 102/67 95 10/23/16 09:35 10/23/16 08:47 10/23/16 08:47 10/23/16 10:59 10/23/16 11:00 Pulse Oximeter Continuous Start: 10/21/16 12: 19 Freq: RTQ4 Status: Hold Document 10/22/16 00:01 DAVIDE (Rec: 10/22/16 00:12 DAVIDE [email or web address]) Pulse Oximetry Assessment Oxygen Saturation (92-100) 97 Oxygen Delivery Method Mechanical Ventilator Fraction of Inspired Oxygen (FIO2) 40 Equipment Usage Equipment in Use Continuous SpO2 Machine # icu Intake & Output 10/22/16 10/23/16 10/24/16 06:59 06:59 06:59 Intake Total 6829 Output Total 3417 5082 275 Balance -3417 1747 -275 Weight 85.8 kg 87.2 kg General appearance: PRESENT: disheveled, obese, well-developed Head exam: PRESENT: atraumatic, normocephalic Eye exam: PRESENT: conjunctiva pale Mouth exam: PRESENT: dry mucosa, neck supple, other - ET tube Neck exam: ABSENT: carotid bruit, JVD, lymphadenopathy, thyromegaly Respiratory exam: PRESENT: decreased breath sounds, rales, rhonchi, symmetrical , unlabored, wheezes Cardiovascular exam: PRESENT: irregular rhythm Pulses: PRESENT: normal radial pulses GI/Abdominal exam: PRESENT: normal bowel sounds, soft. ABSENT: distended, guarding, mass, organolmegaly, rebound, tenderness Rectal exam: PRESENT: deferred Gentrourinary exam: PRESENT: indwelling catheter Extremities exam: PRESENT: +1 edema Skin exam: PRESENT: dry, intact Results Laboratory Results: 10/23/16 05:33 10/23/16 05:33 10/22/16 10/23/16 10/23/16 11:56 05:33 05:33 WBC 16.5 H RBC 3.04 L Hgb 8.3 L Hct 24.9 L MCV 82 MCH 27.4 MCHC 33.5 RDW 21.6 H Plt Count 308 Carbonic Acid HCO3/H2CO3 Ratio ABG pH ABG pCO2 ABG pO2 ABG HCO3 ABG O2 Saturation ABG Base Excess FiO2 Sodium 146.6 H Potassium 2.9 L* Chloride 102 Carbon Dioxide 32 H Anion Gap 13 BUN 13 Creatinine 0.73 Est GFR ( Amer) > 60 Est GFR (Non-Af Amer) > 60 Glucose 156 H Calcium 8.1 L Phosphorus 3.2 Magnesium 2.1 Total Bilirubin 0.9 AST 31 ALT 75 H Alkaline Phosphatase 242 H Total Protein 5.1 L Albumin 2.8 L Prealbumin 7.9 L Blood Type O POSITIVE Antibody Screen NEGATIVE 10/23/16 05:45 WBC RBC Hgb Hct MCV MCH MCHC RDW Plt Count Carbonic Acid 1.92 H HCO3/H2CO3 Ratio 17:1 ABG pH 7.34 L ABG pCO2 63.9 H ABG pO2 82.9 ABG HCO3 33.3 H ABG O2 Saturation 95.2 ABG Base Excess 6.2 FiO2 45% Sodium Potassium Chloride Carbon Dioxide Anion Gap BUN Creatinine Est GFR ( Amer) Est GFR (Non-Af Amer) Glucose Calcium Phosphorus Magnesium Total Bilirubin AST ALT Alkaline Phosphatase Total Protein Albumin Prealbumin Blood Type Antibody Screen Impressions: KUB X-Ray 10/21/16 12:13 IMPRESSION: A nasogastric tube tip at the GE junction, side port in the distal esophagus Right basilar chest tube in place. No basilar pneumothorax. Small amount of right axillary chest wall air. Consolidation with air bronchograms in the medial right lower lobe. Chest X-Ray 10/23/16 06:00 IMPRESSION: STABLE APPEARANCE OF THE CHEST. SUPPORT DEVICES UNCHANGED. SMALL RIGHT APICAL PNEUMOTHORAX REMAINS. Assessment & Plan - Diagnosis (1) Tension pneumothorax Is this a current diagnosis for this admission?: YesPlan: Right chest tube place tension pneumothorax appears to be resolved;apical pneumothorax persist; air leak pleura-vac persist (2) Acute on chronic respiratory failure with hypoxia and hypercapnia Is this a current diagnosis for this admission?: YesPlan: unchanged (3) COPD (chronic obstructive pulmonary disease) Is this a current diagnosis for this admission?: YesPlan: Continue current bronchodilator therapy (4) RLL pneumonia Qualifiers: Pneumonia type: due to unspecified organism Qualified Code(s): J18.1 - Lobar pneumonia, unspecified organism Is this a current diagnosis for this admission?: YesPlan: Continue antibiotics - Time Critical Time spent with patient: 35 or more minutes - 45 min
== END 2016-10-24 11:08 | disposition expired | DRG 871 ==
LOC: ER 09:20 → EH 12:18 → UNDOADMIN 12:19 → ICU 14:44
PROVIDERS: ADMIT Family Medicine; ATTEND Family Medicine
PROC: 0BH17EZ Insertion of Endotracheal Airway into Trachea, Via Natural or Artificial Opening (ICD-10-PCS; principal; 2016-10-21)
PROC: 5A1945Z Respiratory Ventilation, 24-96 Consecutive Hours (ICD-10-PCS; 2016-10-21)
PROC: 0D9670Z Drainage of Stomach with Drainage Device, Via Natural or Artificial Opening (ICD-10-PCS; 2016-10-21)
PROC: 0W9900Z Drainage of Right Pleural Cavity with Drainage Device, Open Approach (ICD-10-PCS; 2016-10-21)
PROC: 02HV33Z Insertion of Infusion Device into Superior Vena Cava, Percutaneous Approach (ICD-10-PCS; 2016-10-21)
DX: A41.9 Sepsis, unspecified organism (principal); R65.21 Severe sepsis with septic shock; J18.9 Pneumonia, unspecified organism; J93.0 Spontaneous tension pneumothorax; J96.22 Acute and chronic respiratory failure with hypercapnia; J96.21 Acute and chronic respiratory failure with hypoxia; J44.1 Chronic obstructive pulmonary disease with (acute) exacerbation; I50.30 Unspecified diastolic (congestive) heart failure; E46 Unspecified protein-calorie malnutrition; Z51.5 Encounter for palliative care; D64.9 Anemia, unspecified; G89.29 Other chronic pain; E66.9 Obesity, unspecified; F32.9 Major depressive disorder, single episode, unspecified; Z87.891 Personal history of nicotine dependence; Z79.899 Other long term (current) drug therapy; Z88.8 Allergy status to other drugs, medicaments and biological substances
CPT/HCPCS: 36415; 36600; 51702; 71010; 74000; 80053; 80202; 81001; 82550; 82553; 82607; 82728; 82746; 82803; 82962; 83540; 83550; 83735; 83880; 84100; 84132; 84134; 84466; 84478; 84484; 85025; 85027; 85045; 85610; 85730; 86850; 86900; 86901; 87015; 87040; 87070; 87077; 87101; 87116; 87186; 87205; 87206; 93005; 93010; 94002; 94003; 94640; 94660; 96365; 96368; 96372; 96375; 99285; J0330; J0456; J1170; J1644; J1720; J1940; J2060; J2250; J2270; J2370; J2543; J2704; J2930; J3010; J3105; J3370; J3475; J3480; J3490; J7030; J7040; J7060; J7620; P9047; S0164